=== PATIENT | female | born 1965 | race Caucasian/White ===

== ENCOUNTER 2020-11-30 01:15 | Emergency (ER) | payer OTHER, SELFPAY ==
[2020-11-30 01:39] VITALS: BP 109/90; PULSE 110; RESP 22; TEMP 36.6; O2SAT 95
[2020-11-30 01:54] LABS: Basophils Percent Auto 0.4 % (0.2-1.2); Eosinophils Absolute Auto 0.1 K/mm3 (0-0.3); Eosinophils Percent Auto 1.3 % (0-4.4); Hematocrit 39.7 % (37.0-47.0); Hemoglobin 13.1 g/dL (12.0-15.0); Immature Granulocyte Absolute 0.04 K/mm3 (0.00-0.031); Immature Granulocyte Percent A 0.4 % (0-0.5); Lymphocytes Absolute Auto 1.51 K/mm3 (0.9-3.2); Lymphocytes Percent Auto 16.5 % (18.3-44.2); Mean Corpuscular Hemoglobin 29.6 pg (26-34); Mean Corpuscular Volume 89.6 fl (80-100); Mean Platelet Volume 9.2 fl (7.4-10.4); Monocytes Absolute Auto 0.5 K/mm3 (0.1-0.6); Monocytes Percent Auto 5.8 % (2.6-8.5); Neutrophils Absolute Auto 6.9 K/mm3 (1.3-6.7); Neutrophils Percent Auto 75.6 % (45.5-73.1); Platelet Count Result 593 k/mm3 (150-375); Red Blood Count 4.43 M/mm3 (4.2-5.4); Red Cell Distribution Width 13.2 % (11.5-14.5); White Blood Count 9.2 K/mm3 (4.5-10.0)
[2020-11-30 02:04] LABS: INR 1.1; Partial Thromboplastin Time 30.9 SECONDS (22.3-36.8); Prothrombin Time 14.6 Seconds (11.1-14.7)
[2020-11-30] MEDS: ONDANSETRON INJ 4 MG/2 ML VIAL IV PUSH (02:05)
[2020-11-30] MEDS: SODIUM CHLORIDE 0.9% IV 1,000 ML 999 ML IV CONT ×2 (02:05→03:14)
[2020-11-30 02:12] LABS: Albumin Level 3.6 g/dL (3.5-5.1); Alkaline Phosphatase 114 U/L (38-126); Anion Gap 16 mmol/L (8-16); Aspartate Amino Transferase 48 U/L (14-36); Bilirubin,Total 0.3 mg/dL (0.2-1.3); Blood Urea Nitrogen 16 mg/dL (7-17); Calcium 8.3 mg/dL (8.4-10.2); Carbon Dioxide 20 mmol/L (22-30); Chloride 100 mmol/L (98-107); Estimated CRCL calculation 94 ml/min; Estimated Glomerular Filt Rate 47; Glucose 235 mg/dL (65-105); Lactic Acid Reflex 7.5 mmol/L (0.7-2.1); Lipase 62 U/L (23-300); Potassium 3.7 mmol/L (3.4-5.0); Sodium 136 mmol/L (137-145)
[2020-11-30 02:17] LABS: Alanine Aminotransferase 30 U/L (4-35)
[2020-11-30 02:30] VITALS: BP 110/82
--- NOTE | 2020-11-30 02:32 | ED.GENADULT ---
HPI - General Adult General Chief complaint: Abdominal Pain Stated complaint: n/v Time Seen by Provider: 11/30/20 01:18 History of Present Illness HPI narrative: Patient is a 55-year-old female who presents the emergency department with chief complaint of abdominal pain. The patient states that recently she has had problems with reflux and then aspirated and has had some coughing. She had a coughing fit and then had severe pain in her left lower quadrant. The patient states that the pain is sharp in her abdomen states that it is worse with movement and states that it is not improved by anything. Related Data Allergies Allergy/AdvReac Type Severity Reaction Status Date / Time No Known Allergies Allergy Verified 11/30/20 03:16 Review of Systems Review of Systems: Narrative: A 10 system review of systems was completed on the patient and is negative except for what is stated in the HPI. Nursing and ancillary documentation was reviewed. PMFSH Comments Patient has past medical history significant for gastroesophageal reflux disease Social history the patient lives with her Exam Narrative: Exam Narrative: GENERAL: Well-appearing, morbidly obese, and in no acute distress. HEAD: Normocephalic, atraumatic. EYES: PERRLA and EOMI. ENT: Nares clear, no rhinorrhea or epistaxis. Mucous membranes moist. NECK: Supple. CHEST: Clear to auscultation. No respiratory distress. HEART: Regular rate and rhythm. No murmur heard. Normal peripheral pulses. ABDOMEN: Abdominal wall is firm, there is diffuse tenderness to palpation, nondistended, normal active bowel sounds. EXTREMITIES: Normal range of motion. No edema. SKIN: Warm, dry, no rash. NEURO: No focal deficits. Alert and oriented x3. PSYCH: Normal mood and affect. Course Course Emergency Course: Patient was started with fluid resuscitation upon arrival to the emergency department laboratory studies were obtained which shows a lactate of 7.5. The patient exceeds the weight and with the capabilities of our CT scanner at our facility. Due to the lactate and abdominal pain and exam there is concern for intra-abdominal pathology. The case is discussed with the transfer center at [place] and the plan will be to transfer the patient to [place] for further evaluation including helical imaging patient was accepted by Dr Berry at [facility] Due to the elevated lactic with metabolic acidosis there is a concern for intra-abdominal emergent pathology that the patient will be transferred emergently to [place] due to the possibility of requiring emergency surgery after helical imaging Vital Signs Vital signs: Vital Signs Temperature 36.6 C 11/30/20 01:39 Pulse Rate 110 H 11/30/20 01:39 Respiratory Rate 22 H 11/30/20 01:39 Blood Pressure 109/90 11/30/20 01:39 Pulse Oximetry 95 11/30/20 01:39 Temperature 36.4 C L 11/30/20 03:11 Pulse Rate 116 H 11/30/20 03:11 Respiratory Rate 16 11/30/20 03:11 Blood Pressure 107/84 11/30/20 03:20 Pulse Oximetry 92 11/30/20 03:11 Medical Decision Making Vital Signs Vital Signs: Vital Signs Temperature 36.6 C 11/30/20 01:39 Pulse Rate 110 H 11/30/20 01:39 Respiratory Rate 22 H 11/30/20 01:39 Blood Pressure 109/90 11/30/20 01:39 Pulse Oximetry 95 11/30/20 01:39 Temperature 36.4 C L 11/30/20 03:11 Pulse Rate 116 H 11/30/20 03:11 Respiratory Rate 16 11/30/20 03:11 Blood Pressure 107/84 11/30/20 03:20 Pulse Oximetry 92 11/30/20 03:11 Lab Data Result diagrams: 11/30/20 01:46 11/30/20 01:46 Labs: Lab Results 11/30/20 11/30/20 11/30/20 Range/Units 01:46 01:46 01:46 WBC 9.2 (4.5-10.0) K/mm3 RBC 4.43 (4.2-5.4) M/mm3 Hgb 13.1 (12.0-15.0) g/dL Hct 39.7 (37.0-47.0) % MCV 89.6 (80-100) fl MCH 29.6 (26-34) pg MCHC 33.0 (32-36) g/dl RDW 13.2 (11.5-14.5) % Plt Count 593 H (150-375) k/mm3 MPV 9.2 (7.4-10.4) fl
[2020-11-30 03:11] VITALS: PULSE 116; RESP 16; TEMP 36.4; O2SAT 92
[2020-11-30 03:20] VITALS: BP 107/84
[2020-11-30 03:37] VITALS: BP 107/82; PULSE 116; RESP 18; TEMP 36.4; O2SAT 95
[2020-11-30 04:52] LABS: Reflex Lactic Acid Yes or No Add Lactic
== END 2020-11-30 03:40 | disposition short-term general hospital (02) ==
PROVIDERS: Emergency Provider Emergency Medicine
DX: E87.2 Acidosis (principal); R10.84 Generalized abdominal pain; K21.9 Gastro-esophageal reflux disease without esophagitis
CPT/HCPCS: 36415; 80053; 83605; 83690; 85025; 85610; 85730; 96361; 96374; 99285; J2405; J7030

== ENCOUNTER 2020-12-12 14:09 | Emergency (ER) | payer OTHER, SELFPAY ==
[2020-12-12] VITALS (18 sets, daily range): BP systolic 118–145; BP diastolic 70–98; PULSE 96–112; RESP 13–29; TEMP 36.8; O2SAT 94–99
--- NOTE | ~2020-12-12 | XR_ITS ---
EXAMINATION: XR chest 1V portable DATE: 12/12/2020 14:58 INDICATION: Chest pain. Shortness of breath. TECHNIQUE: A single frontal view of the chest was obtained. COMPARISON: None. FINDINGS: The chest demonstrates clear lungs without pneumonia, pleural effusion, or pneumothorax. Th e heart size is normal. IMPRESSION: 1. No acute cardiopulmonary disease. Reviewed, dictated and finalized at location A. [employer] ANALYST
--- NOTE | 2020-12-12 14:42 | ECG_ITS ---
Measurements Intervals [place] Rate: 108 P: 39 W[place]: 112 QRS: 61 QRSD: 92 T: 76 QT: 315 QTc: 423 Interpretive Statements SINUS TACHYCARDIA WITH SHORT WY INTERVAL ABNORMAL ECG Electronically Signed On 12-12-2020 15:54:55 [employer] by Justin Bashir D.O.
[2020-12-12 15:09] LABS: Basophils Absolute Auto 0.1 K/mm3 (0.0-0.1); Basophils Percent Auto 0.7 % (0.2-1.2); Eosinophils Absolute Auto 0.4 K/mm3 (0-0.3); Eosinophils Percent Auto 3.1 % (0-4.4); Hematocrit 35.1 % (37.0-47.0); Hemoglobin 11.2 g/dL (12.0-15.0); Immature Granulocyte Absolute 0.09 K/mm3 (0.00-0.031); Immature Granulocyte Percent A 0.7 % (0-0.5); Lymphocytes Absolute Auto 1.49 K/mm3 (0.9-3.2); Lymphocytes Percent Auto 11.7 % (18.3-44.2); Mean Corpuscular HGB Conc 31.9 g/dl (32-36); Mean Corpuscular Hemoglobin 28.4 pg (26-34); Mean Corpuscular Volume 89.1 fl (80-100); Mean Platelet Volume 9.2 fl (7.4-10.4); Monocytes Absolute Auto 0.9 K/mm3 (0.1-0.6); Monocytes Percent Auto 7.3 % (2.6-8.5); Neutrophils Absolute Auto 9.8 K/mm3 (1.3-6.7); Neutrophils Percent Auto 76.5 % (45.5-73.1); Nucleated Red Blood Cells Perc 0.2 % (0.0-0.2); Platelet Count Result 480 k/mm3 (150-375); Red Blood Count 3.94 M/mm3 (4.2-5.4); Red Cell Distribution Width 14.2 % (11.5-14.5); White Blood Count 12.8 K/mm3 (4.5-10.0)
[2020-12-12 15:20] LABS: Alanine Aminotransferase 24 U/L (4-35); Albumin Level 3.4 g/dL (3.5-5.1); Alkaline Phosphatase 75 U/L (38-126); Anion Gap 3 mmol/L (8-16); Aspartate Amino Transferase 34 U/L (14-36); Bilirubin,Total 0.9 mg/dL (0.2-1.3); Blood Urea Nitrogen 19 mg/dL (7-17); Calcium 8.8 mg/dL (8.4-10.2); Carbon Dioxide 31 mmol/L (22-30); Chloride 101 mmol/L (98-107); Estimated Glomerular Filt Rate > 60; Glucose 103 mg/dL (65-105); Potassium 3.7 mmol/L (3.4-5.0); Prothrombin Time 13.4 Seconds (11.1-14.7); Sodium 135 mmol/L (137-145)
[2020-12-12 15:21] LABS: Partial Thromboplastin Time 21.9 SECONDS (22.3-36.8)
[2020-12-12 15:35] LABS: Troponin I 0.044 ng/mL (0.000-0.034)
[2020-12-12 15:37] LABS: D Dimer 4.91 ug/mL (<0.48)
--- NOTE | 2020-12-12 15:44 | ED.GENADULT ---
HPI - General Adult General Chief complaint: Chest Pain Stated complaint: CP Time Seen by Provider: 12/12/20 14:15 Source: patient Mode of arrival: EMS Limitations: physical limitation History of Present Illness HPI narrative: Patient presents with chief complaint of having an episode of chest pressure and shortness of breath when she was rolled on her left side while at the rehab facility. Patient states that she is residing at the rehab facility so that she can regain her ability to walk. Patient states that she was seen here on 11-30-2020 and transferred to [place] for imaging and further care after having complications from aspiration and not being able to fit into our imaging machines. Patient states that she was discharged to the rehab facility so that she can began ambulating and other aids to daily living. Patient states that she does not have any chest pain or shortness of breath at this time. Patient has a history of IA or stroke. Patient and her state that when she was at [place] a hematoma in her back was found as a cause for her back pain. She denies any other symptoms or concerns. Related Data Home Medications Medication Instructions Recorded Confirmed Antacid (calcium carbonate) 12/12/20 pantoprazole 40 mg PO BID 12/12/20 12/12/20 sucralfate 12/12/20 Allergies Allergy/AdvReac Type Severity Reaction Status Date / Time No Known Allergies Allergy Verified 12/12/20 14:23 Review of Systems Review of Systems: Narrative: CONSTITUTIONAL: Denies fever, chills, or sweats. EYES: Denies visual changes, redness, or discharge. ENT: Denies rhinorrhea, congestion, sore throat, or otalgia. CARDIOVASCULAR: Reports chest pressure that has resolved denies palpitations, or edema. RESPIRATORY: Reports resolved dyspnea denies cough GASTROINTESTINAL: Denies abdominal pain, nausea, vomiting, or diarrhea. GENITOURINARY: Denies dysuria or hematuria. SKIN: Denies rash or itching. MUSCULOSKELETAL: Reports chronic back pain denies joint pain, or myalgia. NEUROLOGIC: Denies headache, numbness, dizziness, or weakness. PSYCHIATRIC: Denies anxiety or depression. Exam Narrative: Exam Narrative: GENERAL: Patient is morbidly obese and can not reposition or ambulate. Patient weighs approx 450lbs. HEAD: Normocephalic, atraumatic. EYES: PERRLA and EOMI. NECK: Supple. No adenopathy or masses. CHEST: Clear to auscultation. No respiratory distress. No wheezes rales or rhonchi. No tachypnea or gasping for breath. Patient 96% on room air. Patient is not hypoxic. HEART: No chest wall tenderness with palpation. Regular rate and rhythm. No murmur heard. Normal peripheral pulses. ABDOMEN: Soft, nontender, nondistended, normal active bowel sounds. EXTREMITIES: Normal range of motion. No edema. SKIN: Warm, dry, no rash. NEURO: No focal deficits. Alert and oriented x3. PSYCH: Normal mood and affect. Course Vital Signs Vital signs: Vital Signs Temperature 98.2 F 12/12/20 14:18 Pulse Rate 109 H 12/12/20 14:18 Respiratory Rate 15 12/12/20 14:18 Blood Pressure 144/98 H 12/12/20 14:18 Pulse Oximetry 95 12/12/20 14:18 Temperature 98.2 F 12/12/20 14:18 Pulse Rate 96 12/12/20 20:20 Respiratory Rate 17 12/12/20 20:20 Blood Pressure 125/71 12/12/20 20:20 Pulse Oximetry 96 12/12/20 20:20 Transfer Transfered to: [facility] Transfer rationale: patient requires imaging for further evaluation and is too large for [facility] machines Accepting physician: Dr Miles Tobias Transfer comments: r/o PE or other etiology for elevated dimer and back pain Medical Decision Making MDM Narrative Medical decision making narrative: Consult with Dr. Sellers, Cardiology who states that patient should just be admitted for serial troponins as with the now elevation he does not feel the needs to initiate other interventions at this time. Admit to hospitalist and he will consult. Consult Kelly Gao, THEE who
[2020-12-12 18:33] LABS: Troponin I 0.132 ng/mL (0.000-0.034)
[2020-12-12] MEDS: CALCIUM CARBONATE (TUMS) 500 MG (200 MG ELEMENTAL) PO (18:53)
--- NOTE | 2020-12-12 19:19 | PC.NURSE ---
Assumed care of pt, pt is alert and upright on stretcher. Pt on tele monitor, VSS. Discussing POC at this time. Pt requesting pain medication for her chronic back pain, rates an 8/10. EDP aware of request.
[2020-12-12] MEDS: MORPHINE SULFATE (*CRX) 4 MG/ML INJ IV PUSH (19:42)
[2020-12-12] MEDS: ENOXAPARIN 120 MG/0.8 ML SYRINGE SUB-Q (19:44)
[2020-12-12] MEDS: ENOXAPARIN 30 MG/0.3 ML SYRINGE SUB-Q (19:44)
--- NOTE | 2020-12-12 21:36 | PC.NURSE ---
called [employer] and [facility] to transport patient to [place]. both companies declined. [facility] accepted eta [id number]
--- NOTE | 2020-12-12 21:43 | PM.CNCAR ---
Assessment and Plan Assessment and plan (1) D-dimer, elevated: Code(s): R79.89 - Other specified abnormal findings of blood chemistry Status: Acute Assessment and Plan: D-dimer elevated Plans for V/Q scan pt was started on LMWH (2) Atypical chest pain: Code(s): R07.89 - Other chest pain Status: Acute Assessment and Plan: No acute EKG changes Troponin mildly elevated ECHO to evaluate LV function and r/o structural abnormalities Pt is started on LMWH ASA recommended as well Thank you for consult. Christian staton. History of Present Illness History of Present Illness Consult date/time: 12/12/20 Pt is a pleasant 55 y/o WF with PMH of GERD and morbid obesity who presented from rehab facility due to chest discomfort. Pt states that she had epigastric discomfort which was dull/pressure associated with SOB. She was not very concerned since it was similar to her GERD symptoms however facility recommended that she presents to ER for further evaluation. Recently pt presented to [facility] with some abdominal discomfort and since she was not fitting to imaging equipment due to her body habitus she was transferred to [facility]. Pt states that she was told to have clot in her groin and it was probably caused by her cough.. Pt was seen and examined while in ER, chart was reviewed, case was d/w pt's nurse. Reason For Visit: CP Review of Systems Review of Systems: All systems reviewed & are unremarkable except as noted in HPI and below Constitutional: Constitutional: Reports as per HPI Eyes: Eyes: Reports as per HPI ENT: Reports system reviewed and no additional complaints, except as documented and Reports as per HPI Cardiovascular: Cardiovascular: Reports as per HPI Respiratory: Respiratory: Reports as per HPI Gastrointestinal: Gastrointestinal: Reports as per HPI Genitourinary: Genitourinary: Reports as per HPI Musculoskeletal: Musculoskeletal: Reports as per HPI Meds Home Medications and Allergies Home Medications Medication Instructions Recorded Confirmed Type Antacid (calcium carbonate) 12/12/20 History pantoprazole 40 mg PO BID 12/12/20 12/12/20 History sucralfate 12/12/20 History Allergies Allergy/AdvReac Type Severity Reaction Status Date / Time No Known Allergies Allergy Verified 12/12/20 14:23 Vital Signs Vital Signs - 24 hr 12/12/20 14:18 12/12/20 15:13 12/12/20 15:15 Temperature 36.8 C Pulse Rate 109 H 110 H 111 H Respiratory Rate 15 26 H 28 H Blood Pressure 144/98 H Pulse Oximetry 95 12/12/20 15:30 12/12/20 15:45 12/12/20 16:00 Temperature Pulse Rate 112 H 110 H 109 H Respiratory Rate 25 H 23 H 18 Blood Pressure Pulse Oximetry 12/12/20 16:15 12/12/20 16:36 12/12/20 16:45 Temperature Pulse Rate 111 H 112 H 110 H Respiratory Rate 25 H 21 H 22 H Blood Pressure Pulse Oximetry 12/12/20 17:00 12/12/20 17:30 12/12/20 17:53 Temperature Pulse Rate 106 H 108 H 105 H Respiratory Rate 17 13 29 H Blood Pressure Pulse Oximetry 96 12/12/20 18:00 12/12/20 18:15 12/12/20 19:19 Temperature Pulse Rate 107 H 107 H 108 H Respiratory Rate 24 H 26 H 28 H Blood Pressure 145/72 H Pulse Oximetry 99 12/12/20 20:20 12/12/20 21:22 Temperature Pulse Rate 96 107 H Respiratory Rate 17 19 Blood Pressure 125/71 118/70 Pulse Oximetry 96 94 Exam Const: General: alert and awake; No acute distress HENMT: Head: normal to inspection and atraumatic Ears: hearing grossly normal bilaterally Face and sinus: normal facial exam Eyes: General: appearance normal, both eyes and all related structures Pupils: Equal, round and reactive pupils present EOM: EOMs intact bilaterally Neck: Neck: normal visual inspection and no JVD Chest: Chest palpation & inspection: normal inspection of the chest Resp: Effort & Inspection: normal respiratory effort and no respiratory distress Auscultation: clear to auscu
--- NOTE | 2020-12-12 21:59 | PC.NURSE ---
[facility] has arrived
== END 2020-12-12 22:15 | disposition short-term general hospital (02) ==
PROVIDERS: Physician Assistant; Emergency Provider Emergency Medicine
DX: R07.89 Other chest pain (principal); M54.5 Low back pain; R79.1 Abnormal coagulation profile; K21.9 Gastro-esophageal reflux disease without esophagitis; E66.01 Morbid (severe) obesity due to excess calories; R00.0 Tachycardia, unspecified
CPT/HCPCS: 36415; 71045; 80053; 84484; 85025; 85380; 85610; 85730; 93005; 96372; 96374; 99285; A9270; J1650; J2270

== ENCOUNTER 2021-03-23 08:00 | Inpatient (IN) | payer OTHER, SELFPAY ==
[2021-03-23] VITALS (21 sets, daily range): BP systolic 95–125; BP diastolic 51–72; PULSE 97–123; RESP 15–31; TEMP 35.9–36.8; O2SAT 89–99; BMI 51.2
--- NOTE | ~2021-03-23 | XR_ITS ---
EXAMINATION: XR chest 1V portable EXAM DATE: 03/26/2021 14:03 INDICATION: Pneumonia. Cough. Shortness of breath. TECHNIQUE: Portable AP frontal chest x-ray was obtained. Comparison is made to prior examination from 03/23/2021. FINDINGS: Small left pleural effusion. Small amount of bibasilar atelectasis or pneumonia. There are 2 contiguous left basilar subcentimeter nodular densities could also be infectious or postinfectious. These are not specifically seen on prior study. After acute episode resolves, a follow-up PA and lat eral chest x-ray is recommended to exclude underlying intraparenchymal nodules which would need furth er evaluation with CT. No pneumothorax. Cardiomediastinal silhouette is normal. There are mild bony d egenerative changes. IMPRESSION: 1. Mild progression of small amount of bibasilar atelectasis or pneumonia. 2. Couple of indeterminate nodular densities left lung base. Recommendation above. 3. Small left pleural effusion. Reviewed, dictated and finalized at location A. IMPRESSION: 1. Mild progression of small amount of bibasilar atelectasis or pneumonia. 2. Couple of indeterminate nodular densities left lung base. Recommendation ab ove. 3. Small left pleural effusion.
--- NOTE | ~2021-03-23 | XR_ITS ---
EXAMINATION: XR chest 1V portable DATE: 03/23/2021 08:48 INDICATION: Shortness of breath. TECHNIQUE: A single frontal view of the chest was obtained. COMPARISON: Chest single view 12/12/2020 FINDINGS: There are mild airspace opacities in right lower lung zone. No pleural effusion or pneumoth orax. The heart size is normal. IMPRESSION: 1. Mild airspace opacities in right lower lung zone, consistent with atelectasis versus pneumonia. Reviewed, dictated and finalized at location D. IMPRESSION: 1. Mild airspace opacities in right lower lung zone, consistent with atelectasi s versus pneumonia.
--- NOTE | 2021-03-23 08:06 | ECG_ITS ---
Measurements Intervals [place] Rate: 119 P: 74 SD: 144 QRS: -9 QRSD: 90 T: 78 QT: 318 QTc: 448 Interpretive Statements SINUS TACHYCARDIA POSSIBLE LEFT ATRIAL ENLARGEMENT LOW QRS VOLTAGE IN PRECORDIAL LEADS BORDERLINE ST-T WAVE ABNORMALITY- DIFFUSE LEADS BASELINE ARTIFACT- I, II, III, AVR, AVL, AVF, V1-V6 ABNORMAL ECG Electronically Signed On 03-23-2021 8:23:21 CDT by Justin Bashir D.O.
--- NOTE | 2021-03-23 08:07 | ED.SOB ---
HPI - SOB/Dyspnea General Chief Complaint: Shortness of Breath/Dyspnea Stated Complaint: vomited - possible aspiration Time Seen by Provider: 03/23/21 08:01 History of Present Illness HPI Narrative: 56 yo female w/ h/o PE, aspiration pneumonia, GERD, COVID-19 presents to the ED for suspected aspiration. She reports that she was vomiting in her sleep, which she says is not uncommon, and she is concerned that she may have aspirated. She awoke with a puddle of vomit in the bed beside her feeling very SOB. She tried an albuterol inhaler without improvement. Per EMS RA saturation was about 85%. She improved to the high 90s on 4 liters. The last time this happens She had aspiration pneumonia. While in the hospital for that she contracted COVID-19. She was just recently discharged home from rehab following that illness. Related Data Home Medications Medication Instructions Recorded Confirmed Antacid (calcium carbonate) 1 tab-cap PO TID 12/12/20 03/23/21 acetaminophen 650 mg 650 mg PO Q12H 03/09/21 03/23/21 tablet,extended release albuterol 90 mcg/actuation aerosol 180 mcg INHALATION DAILY PRN 03/09/21 03/23/21 inhaler gabapentin 300 mg capsule 300 mg PO TID 03/09/21 03/23/21 multivitamin 1 tablet PO DAILY 03/09/21 03/23/21 warfarin 5 mg tablet 5 mg PO DAILY 03/09/21 03/23/21 sucralfate 1 g PO BID PRN 03/23/21 03/23/21 Allergies Allergy/AdvReac Type Severity Reaction Status Date / Time No Known Allergies Allergy Verified 03/29/21 10:26 Review of Systems Review of Systems: All systems reviewed & are unremarkable except as noted in HPI and below Constitutional: Constitutional: Denies chills, Denies fever(s) and Denies weakness Eyes: Eyes: Reports no additional eye complaints ENT: Denies sore throat Cardiovascular: Cardiovascular: Denies chest pain Respiratory: Respiratory: Reports chest congestion, Reports cough, Reports dyspnea and Reports wheezing Gastrointestinal: Gastrointestinal: Denies abdominal pain, Denies diarrhea and Reports vomiting Genitourinary: Genitourinary: Denies hematuria and Denies dysuria Musculoskeletal: Musculoskeletal: Denies back pain Neurologic: Denies confusion, Denies dizziness and Denies weakness [facility] Past Medical History Medical History (Updated 03/29/21 @ 11:35 by Jagdish Piña MD) Allergies Anemia Anticoagulated on Coumadin Blood clot in vein Chronic GERD Encounter for screening colonoscopy Gallbladder & bile duct stone with obstruction Headaches, cluster History of pulmonary embolism On Coumadin IBS (irritable bowel syndrome) Morbid obesity Neuropathy Bilateral feet and toes Obesity Supratherapeutic INR Surgical History Surgical History (Updated 03/23/21 @ 16:58 by Kelley Blackwood NP) History of tonsillectomy and adenoidectomy Family History Family History (Updated 03/23/21 @ 16:59 by Kelley Blackwood NP) Mother Thyroid cancer Dementia Father Osteoarthritis Social History Social History (Updated 03/23/21 @ 17:00 by Kelley Blackwood NP) Social History: The patient lives with her . He is the power trust and estates attorney for healthcare. The patient desires to be a full code. The patient is a former smoker. She smoked for approximately 30 years. The patient tells me that she quit smoking about 9 years ago. She is the homemaker. She has 1 stepchild but no biological children. Smoking packs per day: 2 Smoking cigarettes per day: 40.0 Years smoked: 30 Smoking pack-years: 60.00 Smoking status: Former smoker Tobacco type: cigarettes Smoking end date: 03/30/21 Alcohol intake: never Substance use: never Gender identity (if verbalized by the patient): Female Spiritual care concerns: No Exam Const: General: no acute distress, alert and ill appearing Nutritional Appearance: obese morbidly obese Orientation/consciousness: patient oriented x3 HENMT: Head: normal to inspection Neck: Neck: normal visual inspection Johana
--- NOTE | 2021-03-23 08:25 | PC.NURSE ---
RT at bedside for ABG's and UDT. Labs collected as ordered.
[2021-03-23] MEDS: IPRATROPIUM BR 0.02% INH SOLN 0.5 MG/2.5 ML VIAL 1 MG INHALATION (08:36)
[2021-03-23] MEDS: ALBUTEROL SULFATE NEB 2.5 MG/0.5 ML INH 10 MG INHALATION (08:36)
[2021-03-23 08:38] LABS: Basophils Absolute Auto 0.1 K/mm3 (0.0-0.1); Basophils Percent Auto 0.7 % (0.2-1.2); Eosinophils Absolute Auto 0.3 K/mm3 (0-0.3); Eosinophils Percent Auto 3.6 % (0-4.4); Hematocrit 34.1 % (37.0-47.0); Immature Granulocyte Absolute 0.01 K/mm3 (0.00-0.031); Immature Granulocyte Percent A 0.1 % (0-0.5); Lymphocytes Absolute Auto 1.89 K/mm3 (0.9-3.2); Lymphocytes Percent Auto 22.7 % (18.3-44.2); Mean Corpuscular HGB Conc 29.3 g/dl (32-36); Mean Corpuscular Hemoglobin 21.8 pg (26-34); Mean Corpuscular Volume 74.5 fl (80-100); Mean Platelet Volume 9.6 fl (7.4-10.4); Monocytes Absolute Auto 0.6 K/mm3 (0.1-0.6); Monocytes Percent Auto 7.6 % (2.6-8.5); Neutrophils Absolute Auto 5.4 K/mm3 (1.3-6.7); Neutrophils Percent Auto 65.3 % (45.5-73.1); Platelet Count Result 572 k/mm3 (150-375); Red Blood Count 4.58 M/mm3 (4.2-5.4); Red Cell Distribution Width 16.7 % (11.5-14.5); White Blood Count 8.3 K/mm3 (4.5-10.0)
[2021-03-23 08:42] LABS: Alveolar/Arterial O2 Gradient 71.8 mmHg; Base Excess ABG -1.2 mEq/l (+/-2.0); Carboxyhemoglobin 0.6 % THb (0-2.0); Fractional Inspired Oxygen 24 %; HCO3 ABG 23.7 mEq/l (22.0-26.0); Methemoglobin ABG 0.3 %THb (0-1.5); Oxygen Content ABG 13.1 %vol (16.0-22.0); Oxyhemoglobin 83.2 % THb (90.0-100.0); PCO2 ABG 40.4 mmHg (35.0-45.0); PO2 ABG 51.2 mmHg (80.0-100.0); PO2 FiO2 Ratio Arterial Blood 2.13 %; Reduced Hemoglobin 15.9 %THb (0-5.0); Total Hemoglobin 11.2 g/dL (12.0-18.0); pH ABG 7.387 (7.350-7.450)
[2021-03-23 08:44] LABS: Device NASAL CANNULA; Modified Allen's Test Pass; Oxygen Saturation ABG 85.9 % (95.0-100.0); Site Drawn LEFT RADIAL
[2021-03-23 08:46] LABS: Lactic Acid Reflex 1.3 mmol/L (0.7-2.1); Prothrombin Time 39.1 Seconds (11.1-14.7)
[2021-03-23 08:47] LABS: Alanine Aminotransferase 31 U/L (4-35); Albumin Level 3.8 g/dL (3.5-5.1); Alkaline Phosphatase 62 U/L (38-126); Anion Gap 7 mmol/L (8-16); Aspartate Amino Transferase 35 U/L (14-36); Bilirubin,Total 0.2 mg/dL (0.2-1.3); Blood Urea Nitrogen 17 mg/dL (7-17); Calcium 9.3 mg/dL (8.4-10.2); Carbon Dioxide 25 mmol/L (22-30); Chloride 107 mmol/L (98-107); Estimated CRCL calculation 143 ml/min; Estimated Glomerular Filt Rate > 60; Glucose 121 mg/dL (65-105); Partial Thromboplastin Time 50.5 SECONDS (22.3-36.8); Potassium 3.7 mmol/L (3.4-5.0); Sodium 139 mmol/L (137-145)
[2021-03-23 08:53] LABS: Anisocytosis 1+ (NORMAL); Hypochromasia 2+ (NORMAL); Poikilocytosis 1+ (NORMAL)
[2021-03-23] MEDS: AMPICILLIN SULB 3 GM/NS 100 ML 3 GM/100 ML VIAL IVPB (08:54)
--- NOTE | 2021-03-23 09:06 | PC.NURSE ---
type and screen drawn and sent to lab. Pt's coughing has decreased at the present time.
--- NOTE | 2021-03-23 10:11 | PC.NURSE ---
Pt states is breathing easier at present. Note cough sounds productive. Remains on o2 at 2L/NC. Exp wheezes have decreased at present.
--- NOTE | 2021-03-23 11:02 | PC.NURSE ---
Pt not given the NS iv as awaiting blood products ordered previously. Blood product was cancelled per Dr. Piña but the NS was not.
[2021-03-23 13:14] LABS: INR 4.1; Prothrombin Time 40.3 Seconds (11.1-14.7)
[2021-03-23] MEDS: GABAPENTIN 300 MG CAPSULE PO ×2 (13:33→22:37)
[2021-03-23] MEDS: IPRATROPIUM BR 0.02% INH SOLN 0.5 MG/2.5 ML VIAL INHALATION ×2 (13:35→21:35)
[2021-03-23] MEDS: ALBUTEROL SULFATE NEB 2.5 MG/0.5 ML INH 5 MG INHALATION ×2 (13:35→21:35)
--- NOTE | 2021-03-23 15:02 | PCNSR ---
On 03/23/21, the student, Angela Joy, provided care and completed [facility] documentation on this patient. I have reviewed the student's documentation and agree with the findings.
--- NOTE | 2021-03-23 15:54 | PM.IMHP ---
H&P: HPI History of Present Illness Date/Time: 03/23/21 15:54 this is a 56-year-old female patient who has a history of GERD. The patient has a history of having a PE which occurred before her positive COVID-19. The patient stated was the end of December when she was diagnosed with a PE due to inactivity. The patient stated that she went to rehab and initially tested negative when she went into rehab but when she got into rehab she tested positive. The patient stated that she has been in rehab for 3 months and that she just recently got out of rehab 1 week before [facility]. She stated that she has not been home very long. The patient stated that she has not taken her Coumadin for 2 days because she was told that she has a elevated INR she was not given the exact number. She is not sure how long she will be on the Coumadin. The patient is currently not on any oxygen at home. The patient just recently started with physical therapy and occupational therapy in the home and also has home health nurse coming in her home as well. The patient stated that she still very weak and having difficulty walking. The patient is morbidly obese. The patient stated that she was told she needs to have a sleep study but still has not been able to have this performed. The patient has severe acid reflux and spoke with GI specialist she believes Dr. Morales who informed her that she would have to be off of her Coumadin for about 5 days before she could have a EGD and colonoscopy. The patient stated that she typically does not eat afternoon and sleeps with her head propped up. However she stated that she ate some scrambled eggs this morning was very sleepy and fell asleep shortly after eating. The patient stated she woke up suddenly with acid the back of her throat and she tried to spit it all out cough and all up but she stated she thinks that she aspirated the acid at that time. The EMS was activated and the patient was 85% saturation on room air. She was placed on 2 L per nasal cannula. She does have a history of anemia and her H&H is 10.0 in 34.1 today. Her INR is 4.0 today and her Coumadin is on hold. The patient was given Unasyn in the emergency room as well as nebulizer treatments. She was also given IV Protonix the patient is being admitted to inpatient services on the date of service of 03/23/2021.. Chief Complaint: asp pneumonia Review of Systems Review of Systems: All systems reviewed & are unremarkable except as noted in HPI and below Constitutional: Constitutional: Reports as per HPI and Reports no additional constitutional complaints Eyes: Eyes: Reports as per HPI and Reports no additional eye complaints ENT: Reports system reviewed and no additional complaints, except as documented and Reports Normal hearing present Cardiovascular: Cardiovascular: Reports no additional cardiovascular complaints Respiratory: Respiratory: Reports no additional respiratory complaints and Reports no additional respiratory complaints Gastrointestinal: Gastrointestinal: Reports as per HPI and Reports no additional gastrointestinal complaints Musculoskeletal: Musculoskeletal: Reports no additional musculoskeletal complaints Integumentary/Breasts: Skin/Breast: Reports system reviewed and no additional complaints, except as docu and Reports as per HPI Neurologic: Reports system reviewed and no additional complaints, except as documented, Reports as per HPI and Reports Normal hearing present Psychiatric: Psychiatric: Reports no additional psychiatric complaints and Reports as per HPI Endocrine: Endocrine: Reports no additional endocrine complaints Hematologic/Lymphatic: Hematologic/Lymphatic: Reports no additional hematologic/lymphatic complaints Allergic/Immunologic: Allergic/Immunologic: Reports no additional allergic/immunologic complaints [facility] Past Medical History Medical History (Updated 03/23/21 @ 16:58 by Kelley Blackwood NP) Allergies Anemia Blood
[2021-03-23] MEDS: LACTATED RINGERS 1,000 ML 125 ML IV CONT (17:24)
[2021-03-23] MEDS: ACETAMINOPHEN 325 MG TABLET 650 MG PO (18:48)
[2021-03-23] MEDS: METOCLOPRAMIDE HCL 2.5 MG TABLET PO (22:37)
[2021-03-23] MEDS: PANTOPRAZOLE 40 MG TABLET PO (22:37)
[2021-03-24] VITALS (20 sets, daily range): BP systolic 112–136; BP diastolic 55–64; PULSE 93–116; RESP 16–22; TEMP 36.1–36.4; O2SAT 93–100
[2021-03-24] MEDS: SUCRALFATE 1 GM TABLET PO (00:11)
[2021-03-24] MEDS: ALBUTEROL SULFATE NEB 2.5 MG/0.5 ML INH 5 MG INHALATION ×4 (03:26→19:50)
[2021-03-24] MEDS: IPRATROPIUM BR 0.02% INH SOLN 0.5 MG/2.5 ML VIAL INHALATION ×4 (03:26→19:50)
[2021-03-24] MEDS: ACETAMINOPHEN 325 MG TABLET 650 MG PO ×2 (04:35→11:36)
[2021-03-24] MEDS: LACTATED RINGERS 1,000 ML 125 ML IV CONT ×3 (04:35→23:37)
[2021-03-24 05:19] LABS: Basophils Absolute Auto 0.1 K/mm3 (0.0-0.1); Basophils Percent Auto 0.5 % (0.2-1.2); Eosinophils Absolute Auto 0.7 K/mm3 (0-0.3); Eosinophils Percent Auto 6.1 % (0-4.4); Hematocrit 29.3 % (37.0-47.0); Hemoglobin 8.5 g/dL (12.0-15.0); Immature Granulocyte Absolute 0.05 K/mm3 (0.00-0.031); Immature Granulocyte Percent A 0.5 % (0-0.5); Lymphocytes Absolute Auto 1.42 K/mm3 (0.9-3.2); Lymphocytes Percent Auto 13.3 % (18.3-44.2); Mean Corpuscular Hemoglobin 21.9 pg (26-34); Mean Corpuscular Volume 75.3 fl (80-100); Mean Platelet Volume 9.4 fl (7.4-10.4); Monocytes Absolute Auto 0.8 K/mm3 (0.1-0.6); Monocytes Percent Auto 7.7 % (2.6-8.5); Neutrophils Absolute Auto 7.7 K/mm3 (1.3-6.7); Neutrophils Percent Auto 71.9 % (45.5-73.1); Platelet Count Result 431 k/mm3 (150-375); Red Blood Count 3.89 M/mm3 (4.2-5.4); Red Cell Distribution Width 16.8 % (11.5-14.5); White Blood Count 10.6 K/mm3 (4.5-10.0)
[2021-03-24 05:36] LABS: Alanine Aminotransferase 24 U/L (4-35); Albumin Level 3.4 g/dL (3.5-5.1); Alkaline Phosphatase 53 U/L (38-126); Anion Gap 7 mmol/L (8-16); Aspartate Amino Transferase 27 U/L (14-36); Bilirubin,Total 0.2 mg/dL (0.2-1.3); Blood Urea Nitrogen 15 mg/dL (7-17); Calcium 8.6 mg/dL (8.4-10.2); Carbon Dioxide 28 mmol/L (22-30); Chloride 104 mmol/L (98-107); Estimated CRCL calculation 126 ml/min; Estimated Glomerular Filt Rate > 60; Glucose 111 mg/dL (65-105); Magnesium 1.9 mg/dL (1.6-2.3); Potassium 3.6 mmol/L (3.4-5.0); Sodium 139 mmol/L (137-145)
[2021-03-24] MEDS: METOCLOPRAMIDE HCL 2.5 MG TABLET PO ×4 (05:39→20:08)
[2021-03-24] MEDS: GABAPENTIN 300 MG CAPSULE PO ×3 (05:39→21:19)
[2021-03-24 06:42] LABS: Anisocytosis 1+ (NORMAL); Hypochromasia 1+ (NORMAL); Platelet Estimate Adequate (Adequate)
[2021-03-24] MEDS: PANTOPRAZOLE 40 MG TABLET PO (09:01)
--- NOTE | 2021-03-24 09:09 | PM.IMPN ---
Progress Note: A&P Assessment and Plan (1) Aspiration pneumonia: Code(s): J69.0 - Pneumonitis due to inhalation of food and vomit Status: Acute Assessment and Plan: WBC elevated, follow trend Continue with Zosyn, renal dose Followed by GI, endoscopy planned Continue with IVF bed elevated at least 60? (2) Anemia: Code(s): D64.9 - Anemia, unspecified Status: Chronic Assessment and Plan: Transfuse if <7 Continue to monitor Check iron studies (3) Obesity: Code(s): E66.9 - Obesity, unspecified Status: Chronic Assessment and Plan: Lifestyle modifications encourged PT/OT evaluate and treat PT and OT coming to her home (4) Neuropathy: Code(s): G62.9 - Polyneuropathy, unspecified Status: Chronic Assessment and Plan: Continue with gabapentin (5) Chronic GERD: Code(s): K21.9 - Gastro-esophageal reflux disease without esophagitis Status: Chronic Assessment and Plan: Pantoprazole and Carafate by GI Will continue with home omeprazole and famotidine Subjective Date/time seen: 03/24/21 09:09P Pt is feeling about the same; continues with SOB; denies any CP; some nausea Review of Systems Review of Systems: All systems reviewed & are unremarkable except as noted in HPI and below Constitutional: Constitutional: Reports as per HPI and Reports no additional constitutional complaints Eyes: Eyes: Reports as per HPI and Reports no additional eye complaints ENT: Reports system reviewed and no additional complaints, except as documented and Reports Normal hearing present Cardiovascular: Cardiovascular: Reports no additional cardiovascular complaints Respiratory: Respiratory: Reports no additional respiratory complaints and Reports no additional respiratory complaints Gastrointestinal: Gastrointestinal: Reports as per HPI and Reports no additional gastrointestinal complaints Musculoskeletal: Musculoskeletal: Reports no additional musculoskeletal complaints Integumentary/Breasts: Skin/Breast: Reports system reviewed and no additional complaints, except as docu and Reports as per HPI Neurologic: Reports system reviewed and no additional complaints, except as documented, Reports as per HPI and Reports Normal hearing present Psychiatric: Psychiatric: Reports no additional psychiatric complaints and Reports as per HPI Endocrine: Endocrine: Reports no additional endocrine complaints Hematologic/Lymphatic: Hematologic/Lymphatic: Reports no additional hematologic/lymphatic complaints Allergic/Immunologic: Allergic/Immunologic: Reports no additional allergic/immunologic complaints Exam Const: General: cooperative, healthy appearing, comfortable, no acute distress, well developed, alert, awake and Physically active Nutritional Appearance: obese and overweight Orientation/consciousness: oriented to person, oriented to place, oriented to time and patient oriented x3 Limitations: no limitations HENMT: Head: normal to inspection, No palpable skull fracture present, normocephalic and atraumatic Ears: hearing grossly normal bilaterally and external ears normal General nose exam: Normal external nose present, Normal nares present and No nasal polyps present Eyes: General: appearance normal, both eyes and all related structures Alignment and Position: alignment normal Periorbital: periorbital findings normal Eyelids: eyelids normal Conjunctivae: conjunctivae normal Sclera: sclerae normal Cornea: corneas normal Pupils: Equal, round and reactive pupils present EOM: EOMs intact bilaterally Neck: Neck: normal visual inspection, full ROM, no lymphadenopathy, trachea midline and supple Thyroid: thyroid normal Carotids: normal carotid upstroke Lymphatic: no lymphadenopathy noted Chest: Chest palpation & inspection: normal inspection of the chest Resp: Effort & Inspection: normal respiratory effort Auscultation: diminished lung sounds Cardio:
--- NOTE | 2021-03-24 11:27 | PHAR ---
HOME MED VERIFIED [facility] [id number] OMEPRAZOLE 40 MG 1 CAP BID
[2021-03-24] MEDS: PHARMACIST COMMUNICATION ORDER 1 EACH XX (11:40)
[2021-03-24 12:11] LABS: Basophils Percent Auto 0.4 % (0.2-1.2); Eosinophils Absolute Auto 0.6 K/mm3 (0-0.3); Eosinophils Percent Auto 6.6 % (0-4.4); Hematocrit 27.1 % (37.0-47.0); Hemoglobin 7.9 g/dL (12.0-15.0); Immature Granulocyte Absolute 0.02 K/mm3 (0.00-0.031); Immature Granulocyte Percent A 0.2 % (0-0.5); Lymphocytes Absolute Auto 1.07 K/mm3 (0.9-3.2); Lymphocytes Percent Auto 11.4 % (18.3-44.2); Mean Corpuscular HGB Conc 29.2 g/dl (32-36); Mean Corpuscular Hemoglobin 21.8 pg (26-34); Mean Corpuscular Volume 74.7 fl (80-100); Mean Platelet Volume 9.3 fl (7.4-10.4); Monocytes Absolute Auto 0.7 K/mm3 (0.1-0.6); Monocytes Percent Auto 7.4 % (2.6-8.5); Platelet Count Result 384 k/mm3 (150-375); Red Blood Count 3.63 M/mm3 (4.2-5.4); Red Cell Distribution Width 16.5 % (11.5-14.5); White Blood Count 9.4 K/mm3 (4.5-10.0)
[2021-03-24 12:22] LABS: Anion Gap 2 mmol/L (8-16); Blood Urea Nitrogen 12 mg/dL (7-17); Calcium 8.3 mg/dL (8.4-10.2); Carbon Dioxide 30 mmol/L (22-30); Chloride 105 mmol/L (98-107); Estimated CRCL calculation 143 ml/min; Estimated Glomerular Filt Rate > 60; Glucose 116 mg/dL (65-105); Potassium 3.8 mmol/L (3.4-5.0); Sodium 137 mmol/L (137-145)
[2021-03-24 12:40] LABS: Prothrombin Time 39.7 Seconds (11.1-14.7)
[2021-03-24 12:42] LABS: Hypochromasia 2+ (NORMAL); Ovalocytes 1+ (NORMAL); Platelet Estimate Adequate (Adequate)
[2021-03-24 13:36] LABS: Iron 15 ug/dL (37-170)
[2021-03-24 13:45] LABS: Percent Iron Saturation 5 % (20-50)
[2021-03-24] MEDS: CALCIUM CARBONATE (TUMS) 500 MG (200 MG ELEMENTAL) PO ×2 (16:49→23:38)
[2021-03-24] MEDS: FAMOTIDINE 20 MG/2 ML VIAL IV PUSH (20:08)
[2021-03-25] VITALS (15 sets, daily range): BP systolic 112–141; BP diastolic 49–122; PULSE 91–104; RESP 18–20; TEMP 35.7–37.2; O2SAT 92–98
[2021-03-25] MEDS: IPRATROPIUM BR 0.02% INH SOLN 0.5 MG/2.5 ML VIAL INHALATION ×4 (01:40→21:34)
[2021-03-25] MEDS: ALBUTEROL SULFATE NEB 2.5 MG/0.5 ML INH 5 MG INHALATION ×4 (01:40→21:34)
[2021-03-25] MEDS: CALCIUM CARBONATE (TUMS) 500 MG (200 MG ELEMENTAL) PO ×3 (04:08→17:37)
[2021-03-25] MEDS: GABAPENTIN 300 MG CAPSULE PO ×3 (05:48→22:36)
[2021-03-25] MEDS: METOCLOPRAMIDE HCL 2.5 MG TABLET PO ×4 (05:48→20:23)
[2021-03-25] MEDS: FAMOTIDINE 20 MG/2 ML VIAL IV PUSH ×2 (09:04→20:23)
[2021-03-25] MEDS: ACETAMINOPHEN 325 MG TABLET 650 MG PO (11:54)
[2021-03-25 12:14] LABS: INR 3.3; Prothrombin Time 34.1 Seconds (11.1-14.7)
--- NOTE | 2021-03-25 15:37 | PM.IMPN ---
Progress Note: A&P Assessment and Plan (1) Aspiration pneumonia: Code(s): J69.0 - Pneumonitis due to inhalation of food and vomit Status: Acute Assessment and Plan: WBC improved, now wnl Continue with Zosyn, renal dose Followed by GI, endoscopy planned GI consulted S/p IVF bed elevated at least 60? (2) Anemia: Code(s): D64.9 - Anemia, unspecified Status: Chronic Assessment and Plan: Hgb 7.9 today Transfuse if <7 Continue to monitor Iron low Will start supplement (3) Obesity: Code(s): E66.9 - Obesity, unspecified Status: Chronic Assessment and Plan: Lifestyle modifications encourged PT/OT evaluate and treat PT and OT coming to her home (4) Neuropathy: Code(s): G62.9 - Polyneuropathy, unspecified Status: Chronic Assessment and Plan: Continue with gabapentin (5) Chronic GERD: Code(s): K21.9 - Gastro-esophageal reflux disease without esophagitis Status: Chronic Assessment and Plan: Pantoprazole and Carafate by GI Will continue with home omeprazole and famotidine Subjective Date/time seen: 03/25/21 15:37 Pt continues with coughing, SOB, reflux, N/V; denies any CP or abdominal pain Review of Systems Review of Systems: All systems reviewed & are unremarkable except as noted in HPI and below Exam Const: General: cooperative, healthy appearing, comfortable, no acute distress, well developed, alert, awake and Physically active Nutritional Appearance: obese and overweight Orientation/consciousness: oriented to person, oriented to place, oriented to time and patient oriented x3 Limitations: no limitations HENMT: Head: normal to inspection, No palpable skull fracture present, normocephalic and atraumatic Ears: hearing grossly normal bilaterally and external ears normal General nose exam: Normal external nose present, Normal nares present and No nasal polyps present Eyes: General: appearance normal, both eyes and all related structures Alignment and Position: alignment normal Periorbital: periorbital findings normal Eyelids: eyelids normal Conjunctivae: conjunctivae normal Sclera: sclerae normal Cornea: corneas normal Pupils: Equal, round and reactive pupils present EOM: EOMs intact bilaterally Neck: Neck: normal visual inspection, full ROM, no lymphadenopathy, trachea midline and supple Thyroid: thyroid normal Carotids: normal carotid upstroke Lymphatic: no lymphadenopathy noted Chest: Chest palpation & inspection: normal inspection of the chest Resp: Effort & Inspection: normal respiratory effort Auscultation: diminished lung sounds Cardio: Palpation: normal PMI Rate: regular rate Rhythm: regular rhythm Heart sounds: S1 normal heart sound present and S2 normal heart sound present Peripheral pulses: Peripheral pulses 2+ throughout GI: Inspection: normal to inspection Auscultation: normal bowel sounds Rectal Exam: deferred Skin: General skin exam: normal color Lesions: no lesions Rashes: no rashes Trauma: no lacerations or abrasions Wounds: no wounds Hair: normal Nails: normal Neuro: General: oriented to person, oriented to place, oriented to time and patient oriented x3 Cranial nerves: Yes Equal, round and reactive pupils present and Yes Normal hearing present Cognition (Neuro): normal cognition Speech: normal speech Extrem: General: normal to inspection Right upper extremity: normal to inspection Left upper extremity: normal to inspection Right lower extremity: normal to inspection Left lower extremity: normal to inspection Psych: Appearance: grossly normal Mental Status: mental status grossly normal Speech and movement: Normal speech and movement present Affect: normal affect Attitude: cooperative Thought process: Normal thought process present Insight: Good insight present (Psych) Judgement: Good judgement present (Psych) Objective Data Vital Signs Vital Signs: Vital Signs - 24 hr 0
[2021-03-26] VITALS (12 sets, daily range): BP systolic 111–122; BP diastolic 55–61; PULSE 87–94; RESP 16–20; TEMP 36.8–37.1; O2SAT 95–97
[2021-03-26] MEDS: IPRATROPIUM BR 0.02% INH SOLN 0.5 MG/2.5 ML VIAL INHALATION ×4 (03:05→19:39)
[2021-03-26] MEDS: ALBUTEROL SULFATE NEB 2.5 MG/0.5 ML INH 5 MG INHALATION ×4 (03:05→19:39)
[2021-03-26] MEDS: MULTIVITAMINS THERAPEUTIC TAB (*BKC) 1 TABLET PO (08:59)
[2021-03-26] MEDS: FAMOTIDINE 20 MG/2 ML VIAL IV PUSH ×2 (08:59→21:07)
[2021-03-26] MEDS: MUPIROCIN 2% OINT 22 GM TUBE 1 APPLIC TOPICAL (12:04)
[2021-03-26] MEDS: METOCLOPRAMIDE HCL 2.5 MG TABLET PO ×3 (12:05→21:08)
[2021-03-26 12:14] LABS: INR 2.5; Prothrombin Time 27.2 Seconds (11.1-14.7)
--- NOTE | 2021-03-26 12:27 | PM.IMPN ---
Progress Note: A&P Assessment and Plan (1) Aspiration pneumonia: Code(s): J69.0 - Pneumonitis due to inhalation of food and vomit Status: Acute Assessment and Plan: WBC improved, now wnl Continue with Zosyn, renal dose Followed by GI, endoscopy planned GI consulted S/p IVF bed elevated at least 60? Repeat CXR (2) Anemia: Code(s): D64.9 - Anemia, unspecified Status: Chronic Assessment and Plan: Hgb 7.9 03/25 Transfuse if <7 Continue to monitor Iron low Will start supplement (3) Obesity: Code(s): E66.9 - Obesity, unspecified Status: Chronic Assessment and Plan: Lifestyle modifications encourged PT/OT evaluate and treat PT and OT coming to her home (4) Neuropathy: Code(s): G62.9 - Polyneuropathy, unspecified Status: Chronic Assessment and Plan: Continue with gabapentin (5) Chronic GERD: Code(s): K21.9 - Gastro-esophageal reflux disease without esophagitis Status: Chronic Assessment and Plan: Pantoprazole and Carafate by GI Will continue with home omeprazole and famotidine Subjective Date/time seen: 03/26/21 12:27 Pt continues with nausea; no vomiting today; GI consult pending Review of Systems Review of Systems: All systems reviewed & are unremarkable except as noted in HPI and below Exam Const: General: cooperative, healthy appearing, comfortable, no acute distress, well developed, alert, awake and Physically active Nutritional Appearance: obese and overweight Orientation/consciousness: oriented to person, oriented to place, oriented to time and patient oriented x3 Limitations: no limitations HENMT: Head: normal to inspection, No palpable skull fracture present, normocephalic and atraumatic Ears: hearing grossly normal bilaterally and external ears normal General nose exam: Normal external nose present, Normal nares present and No nasal polyps present Eyes: General: appearance normal, both eyes and all related structures Alignment and Position: alignment normal Periorbital: periorbital findings normal Eyelids: eyelids normal Conjunctivae: conjunctivae normal Sclera: sclerae normal Cornea: corneas normal Pupils: Equal, round and reactive pupils present EOM: EOMs intact bilaterally Neck: Neck: normal visual inspection, full ROM, no lymphadenopathy, trachea midline and supple Thyroid: thyroid normal Carotids: normal carotid upstroke Lymphatic: no lymphadenopathy noted Chest: Chest palpation & inspection: normal inspection of the chest Resp: Effort & Inspection: normal respiratory effort Auscultation: diminished lung sounds Cardio: Palpation: normal PMI Rate: regular rate Rhythm: regular rhythm Heart sounds: S1 normal heart sound present and S2 normal heart sound present Peripheral pulses: Peripheral pulses 2+ throughout GI: Inspection: normal to inspection Auscultation: normal bowel sounds Rectal Exam: deferred Skin: General skin exam: normal color Lesions: no lesions Rashes: no rashes Trauma: no lacerations or abrasions Wounds: no wounds Hair: normal Nails: normal Neuro: General: oriented to person, oriented to place, oriented to time and patient oriented x3 Cranial nerves: Yes Equal, round and reactive pupils present and Yes Normal hearing present Cognition (Neuro): normal cognition Speech: normal speech Extrem: General: normal to inspection Right upper extremity: normal to inspection Left upper extremity: normal to inspection Right lower extremity: normal to inspection Left lower extremity: normal to inspection Psych: Appearance: grossly normal Mental Status: mental status grossly normal Speech and movement: Normal speech and movement present Affect: normal affect Attitude: cooperative Thought process: Normal thought process present Insight: Good insight present (Psych) Judgement: Good judgement present (Psych) Objective Data Vital Signs Vital Signs: Vital Signs - 24 hr
--- NOTE | 2021-03-26 14:37 | WPDGICN ---
Assessment and Plan Assessment and plan (1) Chronic GERD: Code(s): K21.9 - Gastro-esophageal reflux disease without esophagitis Status: Chronic Assessment and Plan: worsening gerd at bedtime and sometimes regurgitate on own saliva while sleeping she says that famotidine and omeprazole bid not helping anymore we will do EGD but need to await until INR<1.7 (still high today, repeat in the morning and if inr is acceptable then can proceed with egd) (2) Aspiration pneumonia: Code(s): J69.0 - Pneumonitis due to inhalation of food and vomit Status: Acute Assessment and Plan: from chronic gerd on iv zosyn I also wonder if may need later on sleep study (she says that at night regurgitation and episodes of reflux/waking up more often) (3) Anticoagulated on Coumadin: Code(s): Z79.01 - [facility] (current) use of anticoagulants Status: Acute Assessment and Plan: keep holding coumadin so we can do EGD (4) Supratherapeutic INR: Code(s): R79.1 - Abnormal coagulation profile Status: Acute (5) Anemia: Code(s): D64.9 - Anemia, unspecified Status: Chronic Assessment and Plan: continue to monitor, no obvious GIB (6) Morbid obesity: Code(s): E66.01 - Morbid (severe) obesity due to excess calories Status: Acute (7) Encounter for screening colonoscopy: Code(s): Z12.11 - Encounter for screening for malignant neoplasm of colon Status: Acute Assessment and Plan: never had colonoscopy, will need at some point (probably as outpatient after pneumonia is resolved) GI Consult Note Consult date/time: 03/26/21 14:37 Reason for consult: GERD HPI: Snehal Mayes is a 56 year old female who came to see my nurse practitioner in the office few weeks ago because worsening reflux and regurgitation. She is morbidly obese with longstanding GERD, she used to be on famotidine that was working however since October reports medicine just stopped working and she has been dealing with more burning sensation and reflux that is worse at night, has episodes of night awakenings with vomiting yellow acid and sour taste in mouth. Actually back on December had coughing episode that cause severe abdominal pain which was complicated by large hematoma in lower abdomen, then she was transferred to rehab and eventually diagnosed with PE, she has been on coumadin, she also just recovered from COVID. She says that is afraid to go to sleep because worsening regurgitation, also she has burping sensation and bloating, she is not eating as much and says that lost several pounds. This time she was admitted after she woke up suddenly with acid the back of her throat and she tried to spit it all out cough and all up but she stated she thinks that she aspirated the acid at that time. EMS checked her pulse sat ~ 85% on room air. She was placed on 2 L per nasal cannula. Her hb was 10 and INR on admission 4.0. Given iv antibiotics for possible aspiration pneumonitis and also iv protonix. Never had scopes. CXR reviewed, mild progression of small amount of bibasilar atelectasis or pneumonia. Review of Systems Constitutional: Constitutional: Denies chills Eyes: Eyes: Reports no additional eye complaints ENT: Reports Normal hearing present Cardiovascular: Cardiovascular: Reports no additional cardiovascular complaints Respiratory: Respiratory: Reports cough Gastrointestinal: Gastrointestinal: Reports heartburn Genitourinary: Genitourinary: Denies hematuria Musculoskeletal: Musculoskeletal: Denies neck pain Integumentary/Breasts: Skin/Breast: Denies dry skin Neurologic: Reports system reviewed and no additional complaints, except as documented Psychiatric: Psychiatric: Reports no additional psychiatric complaints [facility] Past Medical History Medical History (Updated 03/26/21 @ 14:48 by German Goins MD) Allergies Anemia Anticoagulated on Coumadin Bloo
[2021-03-26] MEDS: GABAPENTIN 300 MG CAPSULE PO ×2 (17:02→21:09)
[2021-03-26] MEDS: CALCIUM CARBONATE (TUMS) 500 MG (200 MG ELEMENTAL) PO (21:07)
[2021-03-27] VITALS (16 sets, daily range): BP systolic 106–134; BP diastolic 55–66; PULSE 80–94; RESP 16–20; TEMP 36.1–36.4; O2SAT 91–98
[2021-03-27] MEDS: ALBUTEROL SULFATE NEB 2.5 MG/0.5 ML INH 5 MG INHALATION ×4 (01:48→20:55)
[2021-03-27] MEDS: IPRATROPIUM BR 0.02% INH SOLN 0.5 MG/2.5 ML VIAL INHALATION ×4 (01:48→20:55)
[2021-03-27] MEDS: GABAPENTIN 300 MG CAPSULE PO ×3 (05:23→21:07)
[2021-03-27] MEDS: METOCLOPRAMIDE HCL 2.5 MG TABLET PO ×4 (05:31→21:07)
[2021-03-27 05:32] LABS: Basophils Absolute Auto 0.1 K/mm3 (0.0-0.1); Basophils Percent Auto 0.9 % (0.2-1.2); Eosinophils Absolute Auto 0.6 K/mm3 (0-0.3); Eosinophils Percent Auto 10.1 % (0-4.4); Hematocrit 28.2 % (37.0-47.0); Hemoglobin 8.1 g/dL (12.0-15.0); Immature Granulocyte Absolute 0.02 K/mm3 (0.00-0.031); Immature Granulocyte Percent A 0.4 % (0-0.5); Lymphocytes Absolute Auto 1.65 K/mm3 (0.9-3.2); Lymphocytes Percent Auto 29.7 % (18.3-44.2); Mean Corpuscular HGB Conc 28.7 g/dl (32-36); Mean Corpuscular Hemoglobin 21.5 pg (26-34); Mean Corpuscular Volume 74.8 fl (80-100); Mean Platelet Volume 9.1 fl (7.4-10.4); Monocytes Absolute Auto 0.5 K/mm3 (0.1-0.6); Monocytes Percent Auto 8.1 % (2.6-8.5); Neutrophils Absolute Auto 2.8 K/mm3 (1.3-6.7); Neutrophils Percent Auto 50.8 % (45.5-73.1); Platelet Count Result 405 k/mm3 (150-375); Red Blood Count 3.77 M/mm3 (4.2-5.4); Red Cell Distribution Width 16.7 % (11.5-14.5); White Blood Count 5.6 K/mm3 (4.5-10.0)
[2021-03-27 05:44] LABS: Potassium 3.7 mmol/L (3.4-5.0)
[2021-03-27 05:48] LABS: Anion Gap 3 mmol/L (8-16); Blood Urea Nitrogen 6 mg/dL (7-17); Calcium 8.3 mg/dL (8.4-10.2); Carbon Dioxide 33 mmol/L (22-30); Chloride 103 mmol/L (98-107); Estimated CRCL calculation 143 ml/min; Estimated Glomerular Filt Rate > 60; Glucose 90 mg/dL (65-105); Sodium 139 mmol/L (137-145)
[2021-03-27 05:49] LABS: INR 2.1; Prothrombin Time 23.8 Seconds (11.1-14.7)
[2021-03-27] MEDS: FAMOTIDINE 20 MG/2 ML VIAL IV PUSH ×2 (08:33→21:07)
[2021-03-27] MEDS: MUPIROCIN 2% OINT 22 GM TUBE 1 APPLIC TOPICAL (08:35)
[2021-03-27 09:26] LABS: Hypochromasia 2+ (NORMAL); Platelet Estimate Increased (Adequate)
[2021-03-27 09:27] LABS: Ovalocytes 1+ (NORMAL)
[2021-03-27] MEDS: MULTIVITAMINS THERAPEUTIC TAB (*BKC) 1 TABLET PO (10:34)
--- NOTE | 2021-03-27 12:29 | PC.NURSE ---
On 03/27/21, the student, [USMAN SALGADO], provided care and completed [facility] documentation on this patient. I have reviewed the student's documentation and agree with the findings.
--- NOTE | 2021-03-27 12:50 | PM.IMPN ---
Progress Note: A&P Assessment and Plan (1) Acute respiratory failure with hypoxia: Code(s): J96.01 - Acute respiratory failure with hypoxia Status: Acute Assessment and Plan: Patient has been on 2 L of oxygen via nasal cannula since arrival. Could be due to underlying aspiration pneumonia versus obesity hypoventilation syndrome her versus sleep apnea versus other. Patient is 98% on 1 L via nasal cannula. Continue with IV antibiotics and duoneb treatments at this time Will continue wean oxygen as tolerated (2) Aspiration pneumonia: Code(s): J69.0 - Pneumonitis due to inhalation of food and vomit Status: Acute Assessment and Plan: Patient presented to the hospital due to possible aspiration pneumonia. She was at home and had eaten then woke coughing, felt like there was acid in the back of her throat that began having some trouble breathing. Mild airspace opacity in right lower lung zone, consistent with atelectasis versus pneumonia. The patient has been on 2 L of oxygen via nasal cannula due to acute respiratory failure with hypoxia from aspiration pneumonia IV antibiotics with Zosyn Day #5 White blood cell count has normalized, normal neutrophil count GI was consulted for further evaluation and possible EGD due to Followed by GI, endoscopy Aspiration precautions initiated Continue monitoring. (3) Iron deficiency anemia: Code(s): D50.9 - Iron deficiency anemia, unspecified Status: Acute Assessment and Plan: Acute iron deficiencyanemia. Patient had normal Hgb 11/30/20 and on arrival 03/23/21 Hgb was 10. Patients H&H has slowly decreased during admission. Could be secondary to acute gastritis vs duodenal ulcer vs supratherapeutic INR verses other. Will give 3 doses of IV Venofer due to iron deficiency, then start Ferrous Sulfate upon discharge Monitor H&H which seems to be stabilized at this time. Hgb 8.1/Hct 28%. GI is on board and appreciate his input due to aspiration pneumonia and GERD. Continue monitoring H&H. Transfuse if Hgb less than 7 (4) Obesity: Code(s): E66.9 - Obesity, unspecified Status: Chronic Assessment and Plan: Lifestyle modifications encouraged PT/OT to continue working with the patient (5) Neuropathy: Code(s): G62.9 - Polyneuropathy, unspecified Status: Chronic Assessment and Plan: Continue with gabapentin (6) Chronic GERD: Code(s): K21.9 - Gastro-esophageal reflux disease without esophagitis Status: Chronic Assessment and Plan: Patient is on Metoclopramide ACHS, Famotidine IV 20 mg Q12hrs and PRN Tums. Continue monitoring. (7) Supratherapeutic INR: Code(s): R79.1 - Abnormal coagulation profile Status: Acute Assessment and Plan: Patient is on warfarin due to history of pulmonary embolism back in December 2020. INR was 4.0 on arrival to the ER. We have held the patient's warfarin at this time. INR is 2.1. We are wanting to do an EGD on the patient but her INR has to be less than 1.7. Will recheck in the morning. Time Spent With Patient Time with patient: 25 - 35 minutes Subjective Date/time seen: 03/27/21 12:50 Interval history: Date of service 03/27/2021: Patient reports improvement of her breathing. She still has frequent belching after eating, she has had less GERD symptoms today. She reports a slight tickle in the back of her throat causing her to cough. Denies any deep coughing or productive sputum. Denies any chest pain, palpitations, fever, chills, nausea, vomiting, abdominal pain, leg swelling, calf pain, or any other symp
--- NOTE | 2021-03-27 14:12 | WPDGIPROGNO ---
Progress Note: A&P Assessment and Plan (1) Chronic GERD: Code(s): K21.9 - Gastro-esophageal reflux disease without esophagitis Status: Chronic Assessment and Plan: affecting QOL, will do EGD tomorrow (INR 2.1 today and coumadin has been on hold since admission- expect that tomorrow will be able to do scopes) (2) Iron deficiency anemia: Code(s): D50.9 - Iron deficiency anemia, unspecified Status: Acute Assessment and Plan: no signs of bleeding but also needs a colonoscopy since she will be back on coumadin (never had one), noted МАРИНА (3) Aspiration pneumonia: Code(s): J69.0 - Pneumonitis due to inhalation of food and vomit Status: Acute Assessment and Plan: treatment, better (4) Morbid obesity: Code(s): E66.01 - Morbid (severe) obesity due to excess calories Status: Acute (5) Anticoagulated on Coumadin: Code(s): Z79.01 - custodial (current) use of anticoagulants Status: Acute Assessment and Plan: coumadin on hold Subjective Date/time seen: 03/27/21 14:12 Interval history: she was able to sleep better last night Review of Systems Review of Systems: All systems reviewed & are unremarkable except as noted in HPI and below Exam Const: General: no acute distress Other: morbidly obese, lying in bed HENMT: General nose exam: Normal nares present Eyes: General: appearance normal, both eyes and all related structures Neck: Neck: supple Resp: Auscultation: clear to auscultation bilaterally Cardio: Rate: regular rate GI: Inspection: non-distended GI Palp: No Soft to palpation and No Guarding due to palpation present (GI) Auscultation: normal bowel sounds Skin: General skin exam: normal color Neuro: Speech: normal speech Extrem: General: normal to inspection Psych: Mental Status: mental status grossly normal Objective Data Vital Signs Vital Signs: Vital Signs - 24 hr 03/26/21 19:42 03/26/21 19:50 03/26/21 21:18 Temperature Pulse Rate 87 88 Respiratory Rate 18 18 Blood Pressure Pulse Oximetry 95 97 03/26/21 21:33 03/27/21 01:49 03/27/21 01:59 Temperature 98.2 F Pulse Rate 91 84 88 Respiratory Rate 20 18 18 Blood Pressure 119/61 Pulse Oximetry 97 03/27/21 05:52 03/27/21 07:17 03/27/21 07:20 Temperature 97.6 F Pulse Rate 94 80 Respiratory Rate 16 18 Blood Pressure 106/61 Pulse Oximetry 94 94 03/27/21 07:29 03/27/21 08:00 03/27/21 13:56 Temperature 96.9 F L Pulse Rate 85 89 Respiratory Rate 18 20 Blood Pressure 134/55 L Pulse Oximetry 96 98 94 03/27/21 13:57 Temperature Pulse Rate Respiratory Rate Blood Pressure Pulse Oximetry 94 Intake/Output Intake/Output: Intake & Output 03/24/21 03/25/21 03/26/21 03/27/21 23:59 23:59 23:59 23:59 Intake Total 4230 1020 850 855 Output Total 1675 2700 1900 600 Balance 6855 -7260 -8390 255 Meds/Results Medications: Active Medications Generic Name Dose Route Start Last Admin Trade Name Freq PRN Reason Stop Dose Admin Acetaminophen 650 mg 03/23/21 11:49 03/25/21 11:54 Acetaminophen 325 Mg Tablet PO 650 mg Q4H PRN Administration Mild Pain (1-3) or Fever Albuterol 5 mg 03/23/21 14:00 03/27/21 14:10 Albuterol Sulfate Neb 2.5 Mg/0.5 Ml Inh INHALATION 5 mg Q6HRT JESSICA Administration Albuterol 1 puff 03/23/21 11:56 Albuterol Sulfate (*Sp) Aerosol 1 Puff INHALATION DAILY PRN Shortness Of Breath Bisacodyl 5 mg 03/23/21 11:49 Bisacodyl 5 Mg Tablet Ec PO DAILY PRN Constipation Bisacodyl 20 mg 03/27/21 17:00 Bisacodyl 5 Mg Tablet Ec PO 03/27/21 17:01 ONCE ONE Calcium Carbonate 200 mg 03/24/21 16:21 03/26/21 21:07 Calcium Carbonate (Tums) 500 Mg (200 Mg Elemental) PO 200 mg Q4H PRN Administration Indigestion Famotidine 20 mg 03/24/21 21:00 03/27/21 08:33 Famotidine 20 Mg/2 Ml Vial IV PUSH 20 mg Q12HR JESSICA Adm
[2021-03-27] MEDS: BISACODYL 5 MG TABLET EC 20 MG PO (16:56)
[2021-03-27] MEDS: polyethylene glycoL 3350 238 GM BOTTLE PO (17:01)
[2021-03-28] VITALS (17 sets, daily range): BP systolic 120–156; BP diastolic 50–98; PULSE 79–104; RESP 16–33; TEMP 36.1–36.5; O2SAT 89–98
[2021-03-28] MEDS: IPRATROPIUM BR 0.02% INH SOLN 0.5 MG/2.5 ML VIAL INHALATION ×4 (02:50→20:45)
[2021-03-28] MEDS: CALCIUM CARBONATE (TUMS) 500 MG (200 MG ELEMENTAL) PO ×2 (04:17→17:13)
[2021-03-28] MEDS: MAGNESIUM CITRATE 300 ML BTL PO (04:17)
[2021-03-28] MEDS: ALBUTEROL SULFATE NEB 2.5 MG/0.5 ML INH 5 MG INHALATION ×4 (04:46→20:45)
--- NOTE | 2021-03-28 04:48 | PCRCNOTE ---
RN stated that the patient was undergoing bowel preparation; Apnea study was not completed
[2021-03-28 05:44] LABS: Hematocrit 29.3 % (37.0-47.0); Hemoglobin 8.7 g/dL (12.0-15.0)
[2021-03-28 05:54] LABS: INR 1.8; Prothrombin Time 21.9 Seconds (11.1-14.7)
[2021-03-28 05:57] LABS: Anion Gap 6 mmol/L (8-16); Blood Urea Nitrogen 5 mg/dL (7-17); Calcium 8.9 mg/dL (8.4-10.2); Carbon Dioxide 30 mmol/L (22-30); Chloride 103 mmol/L (98-107); Estimated CRCL calculation 143 ml/min; Estimated Glomerular Filt Rate > 60; Glucose 89 mg/dL (65-105); Magnesium 2.2 mg/dL (1.6-2.3); Potassium 3.5 mmol/L (3.4-5.0); Sodium 139 mmol/L (137-145)
[2021-03-28] MEDS: GABAPENTIN 300 MG CAPSULE PO ×3 (06:20→21:27)
[2021-03-28] MEDS: METOCLOPRAMIDE HCL 2.5 MG TABLET PO ×4 (06:20→21:28)
[2021-03-28] MEDS: FAMOTIDINE 20 MG/2 ML VIAL IV PUSH ×2 (08:42→21:28)
[2021-03-28] MEDS: MUPIROCIN 2% OINT 22 GM TUBE 1 APPLIC TOPICAL (09:18)
--- NOTE | 2021-03-28 11:19 | PCNFU ---
Nutrition Follow-Up Complete: Inadequate oral food and beverage intake related to GERD as evidence by chronic vomitting and poor appetite. Goal: Meet estimated nutritional needs. Progressing towards goal. We will continue current goal. Pt current nutrition is NPO, was heart healthy. Last recorded weight is 176 kg, last reported weight 03/23, recommend re-weight. Bowel Motility:+BM reported 03/27 Labs Reviewed:BUN 5,Hct 29.3,Hgb 8.7 Meds Noted:Zosyn,Fe,Reglan,MVI, Pepcid,Tums. Additional Notes:Patient seen today for nutrition follow up. State to eating a good dinner meal last night. Overall appetite has been fair. She is NPO for EGD/colonoscopy today. 03/26:MBS-passed. Broken Dentition noted. Agree with diet orders. Monitoring: Follow up in 5 days.
--- NOTE | 2021-03-28 12:06 | WPDANESEPPF ---
Anes - Initial Pre Proc Eval Procedure: Operation Date: 03/28/21 13:30 Proposed Procedures p Esophagogastroduodenoscopy & Colonoscopy - German Goins MD Date/Time: 03/28/21 12:06 Surgeon: Naina Chaudhari PA-C Pre Op Diagnosis: acute respiratory failure with hypoxia,suspected a Patient Data Age: 56 Gender: F Height: 6 ft 1 in Weight: 176 kg Last Vital Signs Temp 96.9 F L 03/28/21 06:00 Pulse 79 03/28/21 08:42 Resp 16 03/28/21 08:42 BP 131/67 03/28/21 06:00 Pulse Ox 89 L 03/28/21 08:42 Allergies Allergy/AdvReac Type Severity Reaction Status Date / Time No Known Allergies Allergy Verified 03/28/21 12:36 Home Medications Medication Instructions Recorded Confirmed Type Antacid (calcium carbonate) 1 tab-cap PO TID 12/12/20 03/23/21 History acetaminophen 650 mg 650 mg PO Q12H 03/09/21 03/23/21 History tablet,extended release albuterol 90 mcg/actuation aerosol 180 mcg INHALATION DAILY PRN 03/09/21 03/23/21 History inhaler gabapentin 300 mg capsule 300 mg PO TID 03/09/21 03/23/21 History multivitamin 1 tablet PO DAILY 03/09/21 03/23/21 History omeprazole 40 mg capsule,delayed 40 mg PO BID #60 cap 03/09/21 03/23/21 Rx release warfarin 5 mg tablet 5 mg PO DAILY 03/09/21 03/23/21 History sucralfate 1 g PO BID PRN 03/23/21 03/23/21 History Laboratory Tests 03/28/21 03/28/21 03/28/21 05:21 05:21 05:21 Hgb 8.7 g/dL L g/dL (12.0-15.0) Hct 29.3 % L % (37.0-47.0) PT 21.9 Seconds H Seconds (11.1-14.7) INR 1.8 Sodium 139 mmol/L mmol/L (137-145) Potassium 3.5 mmol/L mmol/L (3.4-5.0) Chloride 103 mmol/L mmol/L (98-107) Carbon Dioxide 30 mmol/L mmol/L (22-30) Anion Gap 6 mmol/L L mmol/L (8-16) BUN 5 mg/dL L mg/dL (7-17) Creatinine 0.70 mg/dL mg/dL (0.7-1.0) Estim Creat Clear Calc 143 ml/min ml/min Estimated GFR > 60 (59 - ) Glucose 89 mg/dL mg/dL (65-105) Calcium 8.9 mg/dL mg/dL (8.4-10.2) Magnesium 2.2 mg/dL mg/dL (1.6-2.3) Patient hx anesthesia problems: none Family hx anesthesia problems: none [facility] Past Medical History Medical History (Updated 03/27/21 @ 12:59 by Naina Chaudhari PA-C) Allergies Anemia Anticoagulated on Coumadin Blood clot in vein Chronic GERD Encounter for screening colonoscopy Gallbladder & bile duct stone with obstruction Headaches, cluster History of pulmonary embolism On Coumadin IBS (irritable bowel syndrome) Morbid obesity Neuropathy Bilateral feet and toes Obesity Supratherapeutic INR Surgical History Surgical History (Updated 03/23/21 @ 16:58 by Kelley Blackwood NP) History of tonsillectomy and adenoidectomy Family History Family History (Updated 03/23/21 @ 16:59 by Kelley Blackwood NP) Mother Thyroid cancer Dementia Father Osteoarthritis Social History Social History (Updated 03/23/21 @ 17:00 by Kelley Blackwood NP) Social History: The patient lives with her . He is the power energy attorney for healthcare. The patient desires to be a full code. The patient is a former smoker. She smoked for approximately 30 years. The patient tells me that she quit smoking about 9 years ago. She is the homemaker. She has 1 stepchild but no biological children. Smoking packs per day: 2 Smoking cigarettes per day: 40.0 Years smoked: 30 Smoking pack-years: 60.00 Smoking status: Former smoker Tobacco type: cigarettes Smoking end date: 03/30/21 Alcohol intake: never Substance use: never Gender identity (if verbalized by the patient): Female Spiritual care concerns: No Anes - Eval Final PreProcedure Day of Procedure 03/28/21 12:06 Patient weight: super morbidly obese Heart: regular rate and rhythm Lungs: clear to auscultation Airway: Mallampati scale class III Neurological: alert and orient
--- NOTE | 2021-03-28 12:34 | PCPTNOTE ---
The PT treatment was not completed today due to patient refusal. Patient having procedure later and asked to skip PT today. Will continue per Plan of Care frequency and duration.
[2021-03-28] MEDS: LACTATED RINGERS 1,000 ML 150 ML IV CONT (12:49)
--- NOTE | 2021-03-28 13:05 | PM.IMPN ---
Progress Note: A&P Assessment and Plan (1) Acute respiratory failure with hypoxia: Code(s): J96.01 - Acute respiratory failure with hypoxia Status: Acute Assessment and Plan: Patient has been on 2 L of oxygen via nasal cannula since arrival. Could be due to underlying aspiration pneumonia versus obesity hypoventilation syndrome her versus sleep apnea versus other. Patient is 94% on room air. Appears comfortable. Will get apnea link. Continue with IV antibiotics and duoneb treatments at this time Will continue wean oxygen as tolerated (2) Aspiration pneumonia: Code(s): J69.0 - Pneumonitis due to inhalation of food and vomit Status: Acute Assessment and Plan: Patient presented to the hospital due to possible aspiration pneumonia. She was at home and had eaten then woke coughing, felt like there was acid in the back of her throat that began having some trouble breathing. Mild airspace opacity in right lower lung zone, consistent with atelectasis versus pneumonia. The patient has been on 2 L of oxygen via nasal cannula due to acute respiratory failure with hypoxia from aspiration pneumonia. Now on room air without any issues. IV antibiotics with Zosyn Day #6 White blood cell count has normalized, normal neutrophil count GI was consulted for further evaluation and possible EGD due to Followed by GI, endoscopy Aspiration precautions initiated Continue monitoring. (3) Iron deficiency anemia: Code(s): D50.9 - Iron deficiency anemia, unspecified Status: Acute Assessment and Plan: Acute iron deficiencyanemia. Patient had normal Hgb 11/30/20 and on arrival 03/23/21 Hgb was 10. Patients H&H has slowly decreased during admission. Could be secondary to acute gastritis vs duodenal ulcer vs supratherapeutic INR verses other. Will give 3 doses of IV Venofer (#2) due to iron deficiency, then start Ferrous Sulfate upon discharge Monitor H&H which seems to be stabilized at this time. Hgb 8.1/Hct 28%. GI is on board to preform EGD and Colonoscopy to evaluate source. Continue monitoring H&H. Transfuse if Hgb less than 7 (4) Obesity: Code(s): E66.9 - Obesity, unspecified Status: Chronic Assessment and Plan: Lifestyle modifications encouraged PT/OT to continue working with the patient (5) Neuropathy: Code(s): G62.9 - Polyneuropathy, unspecified Status: Chronic Assessment and Plan: Continue with gabapentin (6) Chronic GERD: Code(s): K21.9 - Gastro-esophageal reflux disease without esophagitis Status: Chronic Assessment and Plan: Patient is on Metoclopramide ACHS, Famotidine IV 20 mg Q12hrs and PRN Tums. Continue monitoring. (7) Supratherapeutic INR: Code(s): R79.1 - Abnormal coagulation profile Status: Acute Assessment and Plan: Patient is on warfarin due to history of pulmonary embolism back in December 2020. INR was 4.0 on arrival to the ER. We have held the patient's warfarin at this time. INR is 2.1. We are wanting to do an EGD on the patient but her INR has to be less than 1.7. Will recheck in the morning. (8) Mass of right wrist: Code(s): R22.31 - Localized swelling, mass and lump, right upper limb Status: Acute Assessment and Plan: Large fluid filled mass, that was drained and fluid was collected. No signs of acute infection at this time. There is a mass palpated after fluid was removed. She needs follow up with Plastic Surgeon for further evaluation. Patient states she has been thinking about following up. She understands and agrees with the plan. Al
[2021-03-28] MEDS: BENZOCAINE (*SP) 60 ML SPRAY CAN (HURRICAINE) 1 SPRAY MUCOUS MEM (13:20)
--- NOTE | 2021-03-28 13:39 | PC.NURSE ---
On 03/28/21, the student, [Meche Barrera ], provided care and completed [facility] documentation on this patient. I have reviewed the student's documentation and agree with the findings.
--- NOTE | 2021-03-28 14:02 | PCOTNOTE ---
Attempted to see patient this pm, however patient off floor for testing at this time.
[2021-03-28] MEDS: SALINE 0.65% NAS SOLN 44 ML BTL 1 SPRAY NASAL (14:08)
[2021-03-28] MEDS: MULTIVITAMINS THERAPEUTIC TAB (*BKC) 1 TABLET PO (14:56)
[2021-03-28] MEDS: SUCRALFATE SUSP 100 MG/ML 10 ML UDC 1000 MG PO ×2 (17:08→21:27)
[2021-03-28] MEDS: ACETAMINOPHEN 325 MG TABLET 650 MG PO (17:09)
[2021-03-28] MEDS: PANTOPRAZOLE SODIUM IV 40 MG VIAL IV PUSH (21:27)
[2021-03-29] VITALS (13 sets, daily range): BP systolic 93–135; BP diastolic 40–96; PULSE 84–92; RESP 16–31; TEMP 36.1–37; O2SAT 95–100
--- NOTE | 2021-03-29 04:29 | PCRCNOTE ---
0200 breathing treatment not administered due to patient being on an apnea link.
[2021-03-29 05:34] LABS: Basophils Absolute Auto 0.1 K/mm3 (0.0-0.1); Basophils Percent Auto 0.6 % (0.2-1.2); Eosinophils Absolute Auto 0.6 K/mm3 (0-0.3); Eosinophils Percent Auto 6.5 % (0-4.4); Hematocrit 29.1 % (37.0-47.0); Hemoglobin 8.6 g/dL (12.0-15.0); Immature Granulocyte Absolute 0.04 K/mm3 (0.00-0.031); Immature Granulocyte Percent A 0.4 % (0-0.5); Lymphocytes Percent Auto 18.2 % (18.3-44.2); Mean Corpuscular HGB Conc 29.6 g/dl (32-36); Mean Corpuscular Hemoglobin 21.3 pg (26-34); Mean Platelet Volume 9.2 fl (7.4-10.4); Monocytes Absolute Auto 0.8 K/mm3 (0.1-0.6); Monocytes Percent Auto 8.5 % (2.6-8.5); Neutrophils Absolute Auto 6.1 K/mm3 (1.3-6.7); Neutrophils Percent Auto 65.8 % (45.5-73.1); Nucleated Red Blood Cells Perc 0.2 % (0.0-0.2); Platelet Count Result 532 k/mm3 (150-375); Red Blood Count 4.04 M/mm3 (4.2-5.4); White Blood Count 9.3 K/mm3 (4.5-10.0)
[2021-03-29 05:51] LABS: Anion Gap 5 mmol/L (8-16); Blood Urea Nitrogen 5 mg/dL (7-17); Calcium 8.2 mg/dL (8.4-10.2); Carbon Dioxide 29 mmol/L (22-30); Chloride 103 mmol/L (98-107); Estimated CRCL calculation 143 ml/min; Estimated Glomerular Filt Rate > 60; Glucose 99 mg/dL (65-105); Potassium 3.3 mmol/L (3.4-5.0); Sodium 137 mmol/L (137-145)
[2021-03-29 05:58] LABS: INR 1.6
[2021-03-29 06:20] LABS: Anisocytosis 1+ (NORMAL); Hypochromasia 1+ (NORMAL); Ovalocytes 1+ (NORMAL); Platelet Estimate Adequate (Adequate)
[2021-03-29] MEDS: ALBUTEROL SULFATE NEB 2.5 MG/0.5 ML INH 5 MG INHALATION ×2 (08:04→20:17)
[2021-03-29] MEDS: IPRATROPIUM BR 0.02% INH SOLN 0.5 MG/2.5 ML VIAL INHALATION ×2 (08:04→20:17)
[2021-03-29] MEDS: PANTOPRAZOLE SODIUM IV 40 MG VIAL IV PUSH ×2 (09:04→20:39)
[2021-03-29] MEDS: FAMOTIDINE 20 MG/2 ML VIAL IV PUSH ×2 (09:04→20:39)
[2021-03-29] MEDS: MUPIROCIN 2% OINT 22 GM TUBE 1 APPLIC TOPICAL (09:07)
--- NOTE | 2021-03-29 10:15 | PC.NURSE ---
To GI Lab per wheelchair, IV LFA. Report given to Asuncion WILLS.
[2021-03-29] MEDS: LACTATED RINGERS 1,000 ML 150 ML IV CONT (10:41)
--- NOTE | 2021-03-29 11:02 | WPDANESEPPF ---
Anes - Initial Pre Proc Eval Procedure: Operation Date: 03/28/21 13:30 Proposed Procedures p Esophagogastroduodenoscopy & Colonoscopy - German Goins MD Operation Date: 03/29/21 11:45 Proposed Procedures p Esophagogastroduodenoscopy & Colonoscopy - German Goins MD Date/Time: 03/29/21 11:02 Surgeon: Naina Chaudhari PA-C Pre Op Diagnosis: acute respiratory failure with hypoxia,suspected a Patient Data Age: 56 Gender: F Height: 1.85 m Weight: 176 kg Last Vital Signs Temp 36.6 C 03/29/21 10:31 Pulse 91 03/29/21 10:31 Resp 20 03/29/21 10:31 BP 131/67 03/29/21 10:31 Pulse Ox 95 03/29/21 10:31 Allergies Allergy/AdvReac Type Severity Reaction Status Date / Time No Known Allergies Allergy Verified 03/29/21 10:26 Home Medications Medication Instructions Recorded Confirmed Type Antacid (calcium carbonate) 1 tab-cap PO TID 12/12/20 03/23/21 History acetaminophen 650 mg 650 mg PO Q12H 03/09/21 03/23/21 History tablet,extended release albuterol 90 mcg/actuation aerosol 180 mcg INHALATION DAILY PRN 03/09/21 03/23/21 History inhaler gabapentin 300 mg capsule 300 mg PO TID 03/09/21 03/23/21 History multivitamin 1 tablet PO DAILY 03/09/21 03/23/21 History omeprazole 40 mg capsule,delayed 40 mg PO BID #60 cap 03/09/21 03/23/21 Rx release warfarin 5 mg tablet 5 mg PO DAILY 03/09/21 03/23/21 History sucralfate 1 g PO BID PRN 03/23/21 03/23/21 History Laboratory Tests 03/29/21 03/29/21 03/29/21 05:03 05:03 05:03 WBC 9.3 K/mm3 K/mm3 (4.5-10.0) RBC 4.04 M/mm3 L M/mm3 (4.2-5.4) Hgb 8.6 g/dL L g/dL (12.0-15.0) Hct 29.1 % L % (37.0-47.0) MCV 72.0 fl L fl (80-100) MCH 21.3 pg L pg (26-34) MCHC 29.6 g/dl L g/dl (32-36) RDW 17.0 % H % (11.5-14.5) Plt Count 532 k/mm3 H k/mm3 (150-375) MPV 9.2 fl fl (7.4-10.4) Immature Gran % (Auto) 0.4 % % (0-0.5) Neut % (Auto) 65.8 % % (45.5-73.1) Lymph % (Auto) 18.2 % L % (18.3-44.2) [place] % (Auto) 8.5 % % (2.6-8.5) Eos % (Auto) 6.5 % H % (0-4.4) Baso % (Auto) 0.6 % % (0.2-1.2) Lymph # (Auto) 1.70 K/mm3 K/mm3 (0.9-3.2) [place] # (Auto) 0.8 K/mm3 H K/mm3 (0.1-0.6) Eos # (Auto) 0.6 K/mm3 H K/mm3 (0-0.3) Baso # (Auto) 0.1 K/mm3 K/mm3 (0.0-0.1) Abs Immat Gran (auto) 0.04 K/mm3 H K/mm3 (0.00-0.031) Absolute Neuts (auto) 6.1 K/mm3 K/mm3 (1.3-6.7) Absolute Nucleated RBC 0.0 K/mm3 K/mm3 (0.0-0.012) Nucleated RBC % 0.2 % % (0.0-0.2) Platelet Estimate Adequate (Adequate) Hypochromasia 1+ (NORMAL) Anisocytosis 1+ (NORMAL) Ovalocytes 1+ (NORMAL) PT 20.0 Seconds H Seconds (11.1-14.7) INR 1.6 Sodium 137 mmol/L mmol/L (137-145) Potassium 3.3 mmol/L L mmol/L (3.4-5.0) Chloride 103 mmol/L mmol/L (98-107) Carbon Dioxide 29 mmol/L mmol/L (22-30) Anion Gap 5 mmol/L L mmol/L (8-16) BUN 5 mg/dL L mg/dL (7-17) Creatinine 0.70 mg/dL mg/dL (0.7-1.0) Estim Creat Clear Calc 143 ml/min ml/min Estimated GFR > 60 (59 - ) Glucose 99 mg/dL mg/dL (65-105) Calcium 8.2 mg/dL L mg/dL (8.4-10.2) Patient hx anesthesia problems: none Family hx anesthesia problems: none [facility] Past Medical History Medical History (Updated 03/28/21 @ 13:09 by Naina Chaudhari PA-C) Allergies Anemia Anticoagulated on Coumadin Blood clot in vein Chronic GERD Encounter for screening colonoscopy Gallbladder & bile duct stone with obstruction Headaches, cluster History of pulmonary embolism On Coumadin IBS (irritable bowel syndrome) Morbid obesity Neuropathy Bilateral feet and toes Obesity
--- NOTE | 2021-03-29 11:35 | PCOTNOTE ---
Attempted to see patient this am, however patient off floor for testing at this time.
--- NOTE | 2021-03-29 14:10 | PC.NURSE ---
Returned from GI Lab. Report received from Che.
[2021-03-29] MEDS: MULTIVITAMINS THERAPEUTIC TAB (*BKC) 1 TABLET PO (14:28)
[2021-03-29] MEDS: GABAPENTIN 300 MG CAPSULE PO ×2 (14:30→20:40)
[2021-03-29] MEDS: METOCLOPRAMIDE HCL 2.5 MG TABLET PO ×3 (14:30→20:39)
[2021-03-29] MEDS: SUCRALFATE SUSP 100 MG/ML 10 ML UDC 1000 MG PO ×3 (14:30→20:39)
--- NOTE | 2021-03-29 14:52 | PCPTNOTE ---
The PT treatment was unable to be completed today due to patient out of room for procedure. Will continue per Plan of Care frequency and duration.
--- NOTE | 2021-03-29 14:57 | PM.TDS ---
Transfer Discharge Sum: Prov Provider Date of admission: 03/24/21 09:19 Primary care physician: Therese Marin, DO Admitting clinician: Candi Renteria MD Consults: 03/23/21 Consult to Respiratory Therapy Routine Reason for Consult:: resp failure 03/25/21 Consult to Physician Routine Comment: Spoke with Dr Morales @ 1005 (,[place]) Consulting Provider: German Goins Reason for consultation: Severe GERD Has provider been notified: Yes 03/26/21 08:00 Wound/ET Consult Routine Reason for Consult:: Left abdominal fold open area with slough DS: Admitting Diagnosis Admitting Diagnosis Admitting Diagnosis: SOB DS: Discharge Diagnosis Discharge Diagnosis (1) Gastric outlet obstruction: Code(s): K31.1 - Adult hypertrophic pyloric stenosis Status: Acute Assessment and Plan: EGD today showed Gastric Outlet Obstruction, Pyloric stenosis, Gastritis, Severe Reflux esophagitis. GI concerned may need partial gastrectomy or duodenal stenting. Called [facility] and was accepted to Dr. Ajay NUÑEZ for transfer and further evaluation and monitoring. Will send radiology discs and try to send EGD pictures. Continue IV PPI, Reglan 2.5 mg ACHS, Carafate 1000 mg ACHS. (2) Pyloric stenosis: Code(s): K31.1 - Adult hypertrophic pyloric stenosis Status: Acute Assessment and Plan: See above (3) Gastritis: Code(s): K29.70 - Gastritis, unspecified, without bleeding Status: Acute Assessment and Plan: Continue PPI, could be cause of Iron def anemia (4) Esophagitis: Code(s): K20.90 - Esophagitis, unspecified without bleeding Status: Acute Assessment and Plan: Continue PPI, could be caused by GERD (5) Acute respiratory failure with hypoxia: Code(s): J96.01 - Acute respiratory failure with hypoxia Status: Acute Assessment and Plan: Patient has been on 2 L of oxygen via nasal cannula since arrival. Could be due to underlying aspiration pneumonia versus obesity hypoventilation syndrome her versus sleep apnea versus other. Patient is 96% on room air. Appears comfortable. Apnea link showed AHI elevated at 6.4, RI 7.4 and MELISSA elevated at 16.2. Will need to follow up with [facility] testing as an outpatient. (6) Aspiration pneumonia: Code(s): J69.0 - Pneumonitis due to inhalation of food and vomit Status: Acute Assessment and Plan: Patient presented to the hospital due to possible aspiration pneumonia. She was at home and had eaten then woke coughing, felt like there was acid in the back of her throat that began having some trouble breathing. Mild airspace opacity in right lower lung zone, consistent with atelectasis versus pneumonia. The patient has been on 2 L of oxygen via nasal cannula due to acute respiratory failure with hypoxia from aspiration pneumonia. Now on room air without any issues. Continue with IV antibiotics Day #7 of Zosyn, can stop 03/30 after morning dose. White blood cell count has normalized, normal neutrophil count Aspiration precautions initiated (7) Iron deficiency anemia: Code(s): D50.9 - Iron deficiency anemia, unspecified Status: Acute Assessment and Plan: Acute iron deficiencyanemia. Patient had normal Hgb 11/30/20 and on arrival 03/23/21 Hgb was 10. Patients H&H has slowly decreased during admission. Could be secondary to acute gastritis vs duodenal ulcer vs supratherapeutic INR verses other. Will give 3 doses of IV Venofer (#2) due to iron deficiency, then start Ferrous Sulfate upon discharge Monitor H&H which seems to be stabilized at this time. Hgb 8.1/Hct 28%. GI is on board to preform EGD and Colonoscopy to evaluate source. Continue monitoring H&H. Transfuse if Hgb less than 7
[2021-03-29] MEDS: ACETAMINOPHEN 325 MG TABLET 650 MG PO (20:40)
== END 2021-03-29 22:57 | disposition short-term general hospital (02) | DRG 177 ==
LOC: ANHED 09:55 → ANH2MED 11:16
PROVIDERS: Internal Medicine Gastroenterology; Nurse Practitioner; Nurse Practitioner Adult Health; Admitting Provider Hospitalist; Emergency Provider Emergency Medicine; PCP Internal Medicine; Visit Provider Physician Assistant
PROC: 0DJ08ZZ Inspection of Upper Intestinal Tract, Via Natural or Artificial Opening Endoscopic (ICD-10-PCS; CPT 43235; principal; 2021-03-28 13:30)
DX: J69.0 Pneumonitis due to inhalation of food and vomit (principal); J96.01 Acute respiratory failure with hypoxia; K31.1 Adult hypertrophic pyloric stenosis; Z68.43 Body mass index [BMI] 50.0-59.9, adult; E66.2 Morbid (severe) obesity with alveolar hypoventilation; K25.3 Acute gastric ulcer without hemorrhage or perforation; K21.00 Gastro-esophageal reflux disease with esophagitis, without bleeding; K57.30 Diverticulosis of large intestine without perforation or abscess without bleeding; K63.5 Polyp of colon; K64.8 Other hemorrhoids; D50.0 Iron deficiency anemia secondary to blood loss (chronic); R63.4 Abnormal weight loss; K31.84 Gastroparesis; K29.70 Gastritis, unspecified, without bleeding; G62.9 Polyneuropathy, unspecified; R79.1 Abnormal coagulation profile; R22.31 Localized swelling, mass and lump, right upper limb; K21.9 Gastro-esophageal reflux disease without esophagitis; K58.9 Irritable bowel syndrome, unspecified; Z86.711 Personal history of pulmonary embolism; Z86.16 Personal history of COVID-19; Z79.01 Long term (current) use of anticoagulants; Z87.891 Personal history of nicotine dependence
CPT/HCPCS: 36415; 36600; 71045; 80048; 80053; 82375; 82805; 83050; 83540; 83550; 83605; 83735; 84443; 85014; 85018; 85025; 85610; 85730; 87040; 87081; 88305; 92610; 93005; 94640; 94762; 96361; 96365; 96367; 96376; 97110; 97116; 97162; 97165; 97530; 97535; 99285; A9270; C9113; G0378; J0295; J0330; J0456; J0696; J1756; J2370; J2543; J2704; J3480; J7120

== ENCOUNTER 2021-11-12 14:52 | Outpatient (CLI) | payer OTHER, SELFPAY ==
[2021-11-12 15:15] LABS: Hematocrit 47.4 % (37.0-47.0); Hemoglobin 15.1 g/dL (12.0-15.0); Mean Corpuscular HGB Conc 31.9 g/dl (32-36); Mean Corpuscular Hemoglobin 28.3 pg (26-34); Mean Corpuscular Volume 88.8 fl (80-100); Mean Platelet Volume 9.3 fl (7.4-10.4); Platelet Count Result 214 k/mm3 (150-375); Red Blood Count 5.34 M/mm3 (4.2-5.4); Red Cell Distribution Width 14.8 % (11.5-14.5); White Blood Count 8.3 K/mm3 (4.5-10.0)
[2021-11-12 16:18] LABS: Iron 111 ug/dL (37-170)
[2021-11-12 16:27] LABS: Percent Iron Saturation 35 % (20-50)
[2021-11-12 17:13] LABS: Vitamin B12 > 1000.0 pg/mL (239-931)
== END 2021-11-12 14:53 | disposition home or self-care (01) ==
PROVIDERS: Visit Provider Internal Medicine Hematology & Oncology
DX: D64.9 Anemia, unspecified (principal)
CPT/HCPCS: 36415; 82607; 82728; 83540; 83550; 85027

== ENCOUNTER 2022-02-13 11:43 | Outpatient (CLI) | payer OTHER, SELFPAY ==
[2022-02-13 12:14] LABS: Basophils Percent Auto 0.5 % (0.2-1.2); Eosinophils Absolute Auto 0.1 K/mm3 (0-0.3); Eosinophils Percent Auto 1.2 % (0-4.4); Hematocrit 47.2 % (37.0-47.0); Hemoglobin 15.4 g/dL (12.0-15.0); Immature Granulocyte Absolute 0.01 K/mm3 (0.00-0.031); Immature Granulocyte Percent A 0.2 % (0-0.5); Lymphocytes Absolute Auto 1.92 K/mm3 (0.9-3.2); Lymphocytes Percent Auto 32.4 % (18.3-44.2); Mean Corpuscular HGB Conc 32.6 g/dl (32-36); Mean Platelet Volume 9.1 fl (7.4-10.4); Monocytes Absolute Auto 0.4 K/mm3 (0.1-0.6); Monocytes Percent Auto 6.2 % (2.6-8.5); Neutrophils Absolute Auto 3.5 K/mm3 (1.3-6.7); Neutrophils Percent Auto 59.5 % (45.5-73.1); Platelet Count Result 220 k/mm3 (150-375); Red Blood Count 4.97 M/mm3 (4.2-5.4); Red Cell Distribution Width 11.8 % (11.5-14.5); White Blood Count 5.9 K/mm3 (4.5-10.0)
[2022-02-13 13:21] LABS: Iron 162 ug/dL (37-170)
[2022-02-13 13:31] LABS: Percent Iron Saturation 52 % (20-50)
[2022-02-13 13:37] LABS: Alanine Aminotransferase 39 U/L (4-35); Albumin Level 4.3 g/dL (3.5-5.1); Alkaline Phosphatase 93 U/L (38-126); Anion Gap 9 mmol/L (8-16); Aspartate Amino Transferase 34 U/L (14-36); Bilirubin,Total 0.5 mg/dL (0.2-1.3); Blood Urea Nitrogen 27 mg/dL (7-17); Calcium 9.4 mg/dL (8.4-10.2); Carbon Dioxide 25 mmol/L (22-30); Chloride 107 mmol/L (98-107); Estimated Glomerular Filt Rate > 60; Glucose 96 mg/dL (65-110); Potassium 3.9 mmol/L (3.4-5.0); Sodium 141 mmol/L (137-145)
[2022-02-13 14:35] LABS: Folic Acid > 20.0 ng/mL (2.76->20); Vitamin B12 > 1000.0 pg/mL (239-931)
== END 2022-02-13 11:44 | disposition home or self-care (01) ==
LOC: ANHLAB 11:45
PROVIDERS: Visit Provider Internal Medicine Hematology & Oncology
DX: D64.9 Anemia, unspecified (principal)
CPT/HCPCS: 36415; 80053; 82607; 82728; 82746; 83540; 83550; 85025

== ENCOUNTER 2022-05-22 13:13 | Outpatient (CLI) | payer OTHER, SELFPAY ==
[2022-05-22 13:33] LABS: Basophils Percent Auto 0.4 % (0.2-1.2); Eosinophils Absolute Auto 0.1 K/mm3 (0-0.3); Eosinophils Percent Auto 1.5 % (0-4.4); Hematocrit 45.2 % (37.0-47.0); Hemoglobin 14.7 g/dL (12.0-15.0); Immature Granulocyte Absolute 0.01 K/mm3 (0.00-0.031); Immature Granulocyte Percent A 0.1 % (0-0.5); Lymphocytes Absolute Auto 1.88 K/mm3 (0.9-3.2); Mean Corpuscular HGB Conc 32.5 g/dl (32-36); Mean Corpuscular Hemoglobin 29.8 pg (26-34); Mean Corpuscular Volume 91.7 fl (80-100); Mean Platelet Volume 8.7 fl (7.4-10.4); Monocytes Absolute Auto 0.4 K/mm3 (0.1-0.6); Monocytes Percent Auto 6.4 % (2.6-8.5); Neutrophils Absolute Auto 4.3 K/mm3 (1.3-6.7); Neutrophils Percent Auto 63.6 % (45.5-73.1); Platelet Count Result 248 k/mm3 (150-375); Red Blood Count 4.93 M/mm3 (4.2-5.4); White Blood Count 6.7 K/mm3 (4.5-10.0)
[2022-05-22 14:40] LABS: Iron 95 ug/dL (37-170)
[2022-05-22 14:49] LABS: Percent Iron Saturation 31 % (20-50)
[2022-05-22 15:50] LABS: Folic Acid 12.5 ng/mL (2.76->20)
== END 2022-05-22 13:14 | disposition home or self-care (01) ==
LOC: ANHLAB 13:14
PROVIDERS: Visit Provider Internal Medicine Hematology & Oncology
DX: D64.9 Anemia, unspecified (principal)
CPT/HCPCS: 36415; 82607; 82728; 82746; 83540; 83550; 85025

== ENCOUNTER 2022-11-06 13:39 | Outpatient (CLI) | payer OTHER, SELFPAY ==
[2022-11-06 14:00] LABS: Basophils Percent Auto 0.5 % (0.2-1.2); Eosinophils Absolute Auto 0.2 K/mm3 (0-0.3); Eosinophils Percent Auto 2.3 % (0-4.4); Hematocrit 45.8 % (37.0-47.0); Immature Granulocyte Absolute 0.02 K/mm3 (0.00-0.031); Immature Granulocyte Percent A 0.3 % (0-0.5); Lymphocytes Percent Auto 25.8 % (18.3-44.2); Mean Corpuscular HGB Conc 32.8 g/dl (32-36); Mean Corpuscular Hemoglobin 30.2 pg (26-34); Mean Corpuscular Volume 92.3 fl (80-100); Mean Platelet Volume 8.9 fl (7.4-10.4); Monocytes Absolute Auto 0.5 K/mm3 (0.1-0.6); Monocytes Percent Auto 5.9 % (2.6-8.5); Neutrophils Absolute Auto 5.1 K/mm3 (1.3-6.7); Neutrophils Percent Auto 65.2 % (45.5-73.1); Platelet Count Result 270 k/mm3 (150-375); Red Blood Count 4.96 M/mm3 (4.2-5.4); White Blood Count 7.8 K/mm3 (4.5-10.0)
[2022-11-06 15:57] LABS: Iron 91 ug/dL (37-170)
[2022-11-06 16:02] LABS: Alanine Aminotransferase 79 U/L (6-35); Albumin Level 4.5 g/dL (3.5-5.1); Alkaline Phosphatase 130 U/L (38-126); Anion Gap 7 mmol/L (8-16); Aspartate Amino Transferase 48 U/L (14-36); Bilirubin,Total 0.4 mg/dL (0.2-1.3); Blood Urea Nitrogen 20 mg/dL (7-17); Calcium 9.2 mg/dL (8.4-10.2); Carbon Dioxide 27 mmol/L (22-30); Chloride 105 mmol/L (98-107); Estimated Glomerular Filt Rate > 60; Glucose 98 mg/dL (65-110); Potassium 4.1 mmol/L (3.4-5.0); Sodium 139 mmol/L (137-145)
[2022-11-06 16:09] LABS: Percent Iron Saturation 28 % (20-50)
[2022-11-06 17:12] LABS: Folic Acid > 20.0 ng/mL (2.76->20)
== END 2022-11-06 13:40 | disposition home or self-care (01) ==
PROVIDERS: Visit Provider Internal Medicine Hematology & Oncology
DX: D64.9 Anemia, unspecified (principal)
CPT/HCPCS: 36415; 80053; 82607; 82728; 82746; 83540; 83550; 85025

== ENCOUNTER 2023-05-07 14:30 | Outpatient (CLI) | payer OTHER, SELFPAY ==
[2023-05-07 14:48] LABS: Basophils Absolute Auto 0.1 K/mm3 (0.0-0.1); Basophils Percent Auto 0.7 % (0.2-1.2); Eosinophils Absolute Auto 0.1 K/mm3 (0-0.3); Eosinophils Percent Auto 1.6 % (0-4.4); Hematocrit 44.3 % (37.0-47.0); Hemoglobin 14.7 g/dL (12.0-15.0); Immature Granulocyte Absolute 0.01 K/mm3 (0.00-0.031); Immature Granulocyte Percent A 0.1 % (0-0.5); Lymphocytes Absolute Auto 2.23 K/mm3 (0.9-3.2); Lymphocytes Percent Auto 32.1 % (18.3-44.2); Mean Corpuscular HGB Conc 33.2 g/dl (32-36); Mean Corpuscular Hemoglobin 29.8 pg (26-34); Mean Corpuscular Volume 89.9 fl (80-100); Mean Platelet Volume 8.4 fl (7.4-10.4); Monocytes Absolute Auto 0.4 K/mm3 (0.1-0.6); Monocytes Percent Auto 5.5 % (2.6-8.5); Neutrophils Absolute Auto 4.2 K/mm3 (1.3-6.7); Platelet Count Result 246 k/mm3 (150-375); Red Blood Count 4.93 M/mm3 (4.2-5.4); Red Cell Distribution Width 12.5 % (11.5-14.5)
[2023-05-07 16:25] LABS: Iron 109 ug/dL (37-170)
[2023-05-07 16:28] LABS: Anion Gap 9 mmol/L (8-16); Blood Urea Nitrogen 21 mg/dL (7-17); Calcium 8.8 mg/dL (8.4-10.2); Carbon Dioxide 26 mmol/L (22-30); Chloride 104 mmol/L (98-107); Estimated Glomerular Filt Rate > 60; Glucose 98 mg/dL (65-110); Potassium 3.8 mmol/L (3.4-5.0); Sodium 139 mmol/L (137-145)
[2023-05-07 16:35] LABS: Percent Iron Saturation 37 % (20-50)
[2023-05-07 17:44] LABS: Folic Acid > 20.0 ng/mL (2.76->20)
== END 2023-05-07 14:31 | disposition home or self-care (01) ==
PROVIDERS: Visit Provider Internal Medicine Hematology & Oncology
DX: D64.9 Anemia, unspecified (principal)
CPT/HCPCS: 36415; 80048; 82607; 82728; 82746; 83540; 83550; 85025

== ENCOUNTER 2023-11-06 14:52 | Outpatient (CLI) | payer OTHER, SELFPAY ==
[2023-11-06 15:11] LABS: Basophils Percent Auto 0.6 % (0.2-1.2); Eosinophils Absolute Auto 0.2 K/mm3 (0-0.3); Eosinophils Percent Auto 2.5 % (0-4.4); Hematocrit 45.1 % (37.0-47.0); Hemoglobin 15.1 g/dL (12.0-15.0); Immature Granulocyte Absolute 0.03 K/mm3 (0.00-0.031); Immature Granulocyte Percent A 0.5 % (0-0.5); Lymphocytes Absolute Auto 2.11 K/mm3 (0.9-3.2); Lymphocytes Percent Auto 33.2 % (18.3-44.2); Mean Corpuscular HGB Conc 33.5 g/dl (32-36); Mean Corpuscular Hemoglobin 30.3 pg (26-34); Mean Corpuscular Volume 90.4 fl (80-100); Mean Platelet Volume 8.2 fl (7.4-10.4); Monocytes Absolute Auto 0.4 K/mm3 (0.1-0.6); Monocytes Percent Auto 6.3 % (2.6-8.5); Neutrophils Absolute Auto 3.6 K/mm3 (1.3-6.7); Neutrophils Percent Auto 56.9 % (45.5-73.1); Platelet Count Result 226 k/mm3 (150-375); Red Blood Count 4.99 M/mm3 (4.2-5.4); Red Cell Distribution Width 12.3 % (11.5-14.5); White Blood Count 6.4 K/mm3 (4.5-10.0)
[2023-11-06 17:01] LABS: Iron 100 ug/dL (37-170)
[2023-11-06 17:03] LABS: Anion Gap 6 mmol/L (8-16); Blood Urea Nitrogen 20 mg/dL (7-17); Calcium 9.3 mg/dL (8.4-10.2); Carbon Dioxide 27 mmol/L (22-30); Chloride 105 mmol/L (98-107); Estimated Glomerular Filt Rate > 60; Glucose 97 mg/dL (65-110); Potassium 4.2 mmol/L (3.4-5.0); Sodium 138 mmol/L (137-145)
[2023-11-06 17:16] LABS: Percent Iron Saturation 36 % (20-50)
[2023-11-06 18:06] LABS: Folic Acid > 20.0 ng/mL (2.76->20)
== END 2023-11-06 14:53 | disposition home or self-care (01) ==
LOC: ANHLAB 14:53
PROVIDERS: Visit Provider Internal Medicine Hematology & Oncology
DX: D64.9 Anemia, unspecified (principal)
CPT/HCPCS: 36415; 80048; 82607; 82728; 82746; 83540; 83550; 85025

== ENCOUNTER 2024-04-21 15:12 | Outpatient (CLI) | payer OTHER, SELFPAY ==
--- NOTE | ~2024-04-21 | MM_ITS ---
EXAMINATION: MM screening dwayne BI w brenda HISTORY: Screening TECHNIQUE: Craniocaudal and mediolateral oblique 3-D tomosynthesis images were obtained and synthetic 2-D images were generated. CAD analysis was submitted and interpreted. COMPARISON: No prior mammogram is available for comparison at this institution. BREAST PARENCHYMAL COMPOSITION: The breasts are almost entirely fatty. FINDINGS: There is no evidence of suspicious mass, calcification, or architectural distortion to sugg est malignancy in either breast. There has been no suspicious interval change. IMPRESSION: 1. No mammographic evidence of malignancy. 2. Recommend routine screening mammography in one year. BI-RADS Category 1: Negative Reviewed, dictated and finalized at location A.
== END 2024-04-21 15:13 ==
DX: Z12.31 Encounter for screening mammogram for malignant neoplasm of breast (principal)
CPT/HCPCS: 77063; 77067

== ENCOUNTER 2024-05-19 11:04 | Outpatient (CLI) | payer OTHER, SELFPAY ==
[2024-05-19 11:23] LABS: Basophils Absolute Auto 0.1 K/mm3 (0.0-0.1); Basophils Percent Auto 0.7 % (0.2-1.2); Eosinophils Absolute Auto 0.1 K/mm3 (0-0.3); Eosinophils Percent Auto 1.7 % (0-4.4); Hematocrit 45.8 % (37.0-47.0); Hemoglobin 15.2 g/dL (12.0-15.0); Immature Granulocyte Absolute 0.01 K/mm3 (0.00-0.031); Immature Granulocyte Percent A 0.1 % (0-0.5); Lymphocytes Absolute Auto 1.61 K/mm3 (0.9-3.2); Lymphocytes Percent Auto 22.6 % (18.3-44.2); Mean Corpuscular HGB Conc 33.2 g/dl (32-36); Mean Corpuscular Hemoglobin 30.1 pg (26-34); Mean Corpuscular Volume 90.7 fl (80-100); Mean Platelet Volume 8.9 fl (7.4-10.4); Monocytes Absolute Auto 0.4 K/mm3 (0.1-0.6); Monocytes Percent Auto 5.8 % (2.6-8.5); Neutrophils Absolute Auto 4.9 K/mm3 (1.3-6.7); Neutrophils Percent Auto 69.1 % (45.5-73.1); Platelet Count Result 229 k/mm3 (150-375); Red Blood Count 5.05 M/mm3 (4.2-5.4); Red Cell Distribution Width 12.3 % (11.5-14.5); White Blood Count 7.1 K/mm3 (4.5-10.0)
[2024-05-19 12:44] LABS: Anion Gap 6 mmol/L (4-12); Blood Urea Nitrogen 28 mg/dL (7-17); Calcium 9.3 mg/dL (8.4-10.2); Carbon Dioxide 28 mmol/L (22-30); Chloride 107 mmol/L (98-107); Estimated Glomerular Filt Rate > 60; Glucose 100 mg/dL (65-110); Potassium 4.1 mmol/L (3.4-5.0); Sodium 141 mmol/L (137-145)
[2024-05-19 12:45] LABS: Iron 113 ug/dL (37-170)
[2024-05-19 12:56] LABS: Percent Iron Saturation 39 % (20-50)
[2024-05-19 13:55] LABS: Folic Acid > 20.0 ng/mL (2.76->20)
== END 2024-05-19 11:05 | disposition home or self-care (01) ==
LOC: ANHLAB 11:05
PROVIDERS: Visit Provider Internal Medicine Hematology & Oncology
DX: D64.9 Anemia, unspecified (principal)
CPT/HCPCS: 36415; 80048; 82607; 82728; 82746; 83540; 83550; 85025

== ENCOUNTER 2024-11-11 13:36 | Outpatient (CLI) | payer OTHER, SELFPAY ==
--- OUTSIDE RECORDS SUMMARY | 2024-11-11 13:40 | XMS_ITS | Continuity of Care Document ---
Author Name [facility] Organization [facility] Care Team Providers Care Carpenter General Name Role Phone [facility] Unavailable Unavailable Problems Combined list of problems from Department of Defense and Veterans Affairs facilities. It does not include entries that were removed or entered in error. Problem Status Onset Date Problem Type Date of Resolution Comments Source OA - Osteoarthritis Active 09/20/20 24 Diagnosis [facility] BMI 30+ - obesity Active 09/20/20 24 Diagnosis [facility] ganglion right wrist Inactive 07/24/20 10 Condition DoD visit for: administrative purpose Inactive 07/17/20 10 Condition DoD ganglion Active Condition DoD depression Active Condition with anxi ety. Will treat with wellbutrin as the pt also wants to quit smoking. f/u in a mo. DoD BMI 30+ - obesity Active Condition Ambu latory Pharmacy Depressive disorder1 Active Condition Outside Source Comment: with anxiety. Will treat with wellbutrin as the pt also wants to quit smoking. f/u in a mo. Ambulatory Pharmacy Ganglion cyst Active Condition Ambulato ry Pharmacy OA - Osteoarthritis Active Condition Ambulatory Pharmacy Pulmonary embolism Active Condition Ambulatory Pharmacy Medications Combined list of outpatient medications from Department of Defense and Veterans Affairs facilities.Medications provided include 1) outpatient medications from the last 15 months, and 2) patient-reported medications. Medication Details Route Status Patient Instructions Prescription Expires Prescription Number Last Dispense Date Ordering Provider Order Date Order Qty Source cholecalcif nicola 25 mcg (1000 intl units) oral capsule 1 cap(s), Oral, Daily, # 90 cap(s), 0 total refill(s ), Maintena nce Oral (given by mouth) Ordered 90.0 [facility] [place] diclofenac 1% topical gel USE DOSING CARD TO APPLY 2 TO 4 GRAMS TO AFFECTED AREAS FOUR TIMES A DAY DIRECTED , # 300 g, 3 total refill(s ), Acute Complet ed 12/08/2023 300.0 Ambulat ory Pharmac y DULoxetine 30 mg oral delayed release capsule 1 cap(s), Oral, Daily, do not crush or chew, # 90 cap(s), 3 total refill(s ), Maintena nce, 1 cap(s) Oral Daily,In str:do not crush or chew, Pharmacy : [facility] Oral (given by mouth) Ordered 90.0 [facility] DULoxetine 30 mg oral delayed release capsule 1 cap(s), Oral, Daily, do not crush or chew, # 90 cap(s), 3 total refill(s ), Maintena nce, 1 cap(s) Oral Daily,In str:do not crush or chew, Pharmacy : [facility] Oral (given by mouth) Discont inued 12/29/2023 90.0 [facility] [place] DULOXETINE HCL (duloxetine HCl), 30 MG, CAPSULE DR, ORAL, [employer] 90 ea. BOTTLE Cancele d [id number] : 2023 0 Pharmac y Data Transac tion Service Facilit y DULOXETINE HCL (duloxetine HCl), 30 MG, CAPSULE DR, ORAL, [employer] 90 ea. BOTTLE Active [id number] 4 2023 90 Pharmac y Data Transac tion Service Facilit y DULOXETINE HCL (duloxetine HCl), 30 MG, CAPSULE DR, ORAL, [employer] 90 ea. BOTTLE Active [id number] 4 2023 90 Pharmac y Data Transac tion Service Facilit y ELIQUIS (APIXABAN), 2.5 MG, TABLET, ORAL, [facility] , 60 ea. BOTTLE Active [id number] 4 2023 180 Pharmac y Data Transac tion Service Facilit y ELIQUIS (APIXABAN), 2.5 MG, TABLET, ORAL, [facility] , 60 ea. BOTTLE Active [id number] 4 2023 180 Pharmac y Data Transac tion Service Facilit y Eliquis 5 mg oral tablet 1 tab(s), Oral, BID, # 180 tab(s), 3 total refill(s ), Maintena nce Oral (given by mouth) Ordered 180.0 0055C-[address] [place] [address] [place] ferrous sulfate 325 mg (65 mg elemental iron) oral delayed release tablet 1 tab(s), Oral, Daily, # 90 tab(s), 0 total refill(s ), Maintena nce Oral (given by mouth) Ordered 90.0 [facility]55[facility]-3 [facility] Lidoderm 5% topical film 1 patch(es ), Topical, Daily, Leave on for up to 12 hours within a 24 hour period (12 hours on, 12 hours off), # 30 patch(es ), 3 total refill(s ), Maintena nce Topica l (on the skin) Ordered 30.0 0055C-[address] [place] [address] [place] phentermine 37.5 mg oral tablet 1 tab(s), Oral, Daily, # 90 tab(s), 0 total refill(s ), Maintena nce, 1 tab(s) Oral Daily, Pharmacy : [facility] Oral (given by mouth) Discont inued 09/23/2024 90.0 0055C-[address] [place], [place] [address] semaglutide (Wegovy) 0.25 mg/0.5 mL (0.25 mg dose) inj-pen 0.25 mg, SubCutan eous, every week, for weight manageme nt in the abdomen, thigh, or upper arm Start with the 0.25mg dose for 4 weeks then increase to 0.5mg., # 2 mL, 0 total refill(s ), Maintena nce, pen needles not needed, integrat ed into device; Start with the 0.25mg dose for 4 weeks then increase to 0.5mg., 0.25 mg SubCutan eous every week,Ins tr:for weight manageme nt; in the abdomen, thigh, or upper arm; Start with the 0.25mg dose for 4 weeks then increase to 0.5mg., Pharmacy : [facility] SubCut aneous (under the skin) Discont inued 09/27/2024 2.0 0055C-[address] [place], [place] [address] semaglutide (Wegovy) 0.25 mg/0.5 mL (0.25 mg dose) inj-pen 0.25 mg, SubCutan eous, every week, for weight manageme nt in the abdomen, thigh, or upper arm Start with the 0.25mg dose for 4 weeks then increase to 0.5mg., # 2 mL, 0 total refill(s ), Maintena nce, pen needles not needed, integrat ed into device; Start with the 0.25mg dose for 4 weeks then increase to 0.5mg., 0.25 mg SubCutan eous every week,Ins tr:for weight manageme nt; in the abdomen, thigh, or upper arm; Start with the 0.25mg dose for 4 weeks then increase to 0.5mg., Pharmacy : [facility] SubCut aneous (under the skin) Ordered 2.0 [facility] semaglutide (Wegovy) 0.5 mg/0.5 mL (0.5 mg dose) inj-pen 0.5 mg, SubCutan eous, every week, for weight manageme nt in the abdomen, thigh, or upper arm Start with the 0.25mg dose for 4 weeks then increase to 0.5mg., # 2 mL, 0 total refill(s ), Maintena nce, pen needles not needed, integrat ed into device; Start with the 0.25mg dose for 4 weeks then increase to 0.5mg., 0.5 mg SubCutan eous every week,Ins tr:for weight manageme nt; in the abdomen, thigh, or upper arm; Start with the 0.25mg dose for 4 weeks then increase to 0.5mg., Pharmacy : [facility] SubCut aneous (under the skin) Discont inued 09/27/2024 2.0 [facility] semaglutide (Wegovy) 0.5 mg/0.5 mL (0.5 mg dose) inj-pen 0.5 mg, SubCutan eous, every week, for weight manageme nt in the abdomen, thigh, or upper arm Start with the 0.25mg dose for 4 weeks then increase to 0.5mg., # 2 mL, 0 total refill(s ), Maintena nce, pen needles not needed, integrat ed into device; Start with the 0.25mg dose for 4 weeks then increase to 0.5mg., 0.5 mg SubCutan eous every week,Ins tr:for weight manageme nt; in the abdomen, thigh, or upper arm; Start with the 0.25mg dose for 4 weeks then increase to 0.5mg., Pharmacy : [facility] SubCut aneous (under the skin) Ordered 2.0 0055C-3 [facility] tirzepatide (Zepbound) Pen 2.5 mg/0.5 mL subcutaneou s solution 2.5 mg, SubCutan eous, every week, for weight manageme nt rotate injectio n sites start with 2.5mg dose, increase to 5mg after 4 weeks., # 2 mL, 0 total refill(s ), Maintena nce, pen needles not needed, integrat ed into device, 2.5 mg SubCutan eous every week,Ins tr:for weight manageme nt; rotate injectio n sites; start with 2.5mg dose, increase to 5mg after 4 weeks., Pharmacy : [facility] SubCut aneous (under the skin) Ordered 2.0 0055C-3 [facility] tirzepatide (Zepbound) Pen 5 mg/0.5 mL subcutaneou s solution 5 mg, SubCutan eous, every week, for weight manageme nt start with 2.5mg dose, increase to 5mg after 4 weeks., # 2 mL, 0 total refill(s ), Maintena nce, pen needles not needed, integrat ed into device, 5 mg SubCutan eous every week,Ins tr:for weight manageme nt; start with 2.5mg dose, increase to 5mg after 4 weeks., Pharmacy : [facility] SubCut aneous (under the skin) Ordered 2.0 0055C-3 [facility] Allergies, Adverse Reactions, Alerts Combined list of allergies from Department of Defense and Veterans Affairs facilities. It does not include entries that were removed or entered in error. Substance Category Reaction Severity Reaction type Status Date Reported Comments Source No Known Allergies Drug allergy (disorder) active 04/04/2008 [facility] [place] [facility] ([facility]) Immunizations Combined list of available immunizations from the Department of Defense and Veterans Affairs facilities. Immunization Series Date Given Administered By Site Reaction Lot Number CVX Code Drug Manufacturing Maintenance Manager Status Comments Source COVID Vaccine Moderna 2020 207 complet ed COVID Vaccine Moderna 09/13/21 Given Ambulat ory Pharmac y COVID-19, mRNA, LNP-S, PF, 100 mcg or 50 mcg dose 2020 COCHRAN, Moderna [employer] (MOD) Not Given COVID-19, mRNA, LNP-S, PF, 100 mcg or 50 mcg dose DoD COVID Vaccine Moderna 2020 207 complet ed COVID Vaccine Moderna 08/16/21 Given Ambulat ory Pharmac y COVID-19, mRNA, LNP-S, PF, 100 mcg or 50 mcg dose 2020 COCHRAN, [place] [employer] (MOD) Not Given COVID-19, mRNA, LNP-S, PF, 100 mcg or 50 mcg dose DoD Tdap 2020 ALUL, () Not Given Tdap DoD Results Combined list of recent chemistry, hematology and other laboratory results from Department of Defense and Veterans Affairs, ranging from 15 months to all on record, depending upon the facility. Order Name Results Value Reference Range Date Interpretation Specimen Comments Source Chemistr y Triglyceri inés 185 mg/dL 7 - 149 12/29 H Interpretiv e Data: AGES 0-9: Desirable: < 75 mg/dL Borderline High: 75-99 mg/dL High: >/= 100 mg/dL AGES 10-19: Desirable: < 90 mg/dL Borderline High: 90-129 mg/dL High: >/= 130 mg/dL ADULTS: Desirable: < 150 mg/dL Borderline High: 150-199 mg/dL High: >/= 240 mg/dL Very High: >/= 500 mg/dL Amb[facility] Pharm[facility] Chemistr y LDL/HDL 2 12/29 [facility] Chemistr y LDL 119 mg/dL 100 - 130 12/29 N Interpretiv e Data: AGES 0-19: Desirable: < 110 mg/dL Borderline High: 110-129 mg/dL High: >/= 130 mg/dL ADULTS: Desirable: <100 mg/dL Near/above optimal: 100-130 mg/dL Borderline High: 131-159 mg/dL High: 160-189 mg/dL Very High: e190 mg/dL [facility] Chemistr y HDL Cholestero l 51 mg/dL 40 - 59 12/29 N Interpretiv e Data: HDL (HIGH DENSITY LIPOPROTEIN ): ADULTS: Low: < 40 mg/dL High: >/= 60 mg/dL AGES 0 -19: Low: < 40 mg/dL Borderline Low: 40 - 45 mg/dL Acceptable: > 45 mg/dL [facility] Chemistr y Cholestero l Total 193 mg/dL 12/29 N Interpretiv e Data: According to the [place] [employer] : AGES 0-19: Desirable: < 170 mg/dL Borderline High: 170-199 mg/dL High Blood Cholesterol : >/= 200 mg/dL ADULTS: Desirable < 200 mg/dL Borderline High: 200-239 mg/dL High Blood Cholesterol : >/= 240 mg/dL [facility] Chemistr y Chol/HDL 4 mg/dL 12/29 [facility] Chemistr y Phosphorus 3.7 mg/dL 2.3 - 4.7 12/29 N [facility] Pharmacy Chemistr y Sodium 141 mmol/L 136 - 145 12/29 N [facility] Pharm[facility] Chemistr y Potassium Lvl 4.0 mmol/L 3.5 - 5.1 12/29 N Amb[facility] y Pharmacy Chemistr y Glucose Lvl 100 mg/dL 74 - 99 12/29 H [facility] Pharm[facility] Chemistr y Creatinine Level 0.60 mg/dL 0.57 - 1.11 12/29 N [facility] Pharm[facility] Chemistr y CO2 23 mmol/L - 12/29 N [facility] Pharm[facility] Chemistr y Chloride 109 mmol/L 98 - 107 12/29 H [facility] Pharm[facility] Chemistr y Calcium 9.3 mg/dL 8.4 - 10.2 12/29 N [facility] Pharmacy Chemistr y BUN/Creat Ratio 47 mg/dL 12 - 20 12/29 H [facility] Chemistr y BUN 28 mg/dL 7 - 20 12/29 H [facility] Chemistr y Albumin 3.50 g/dL 3.50 - 5.20 12/29 N [facility] Pharmacy Chemistr y AGAP 9.00 0.00 - 15.00 12/29 N [facility] Pharmacy Chemistr y Hemoglobin A1c 5.0 % 4.0 - 5.6 12/29 N Interpretiv e Data: Normal: 4.0 - 5.6% Increased Risk: 5.7 - 6.4% Diabetic Range: e 6.5% For patients without diabetes, the normal range for the hemoglobin A1c test is between 4% and 5.6%. Hemoglobin A1c levels between 5.7% and 6.4% indicate increased risk of diabetes, and levels of 6.5% or higher indicate diabetes. Because studies have repeatedly shown that out-of-cont rol diabetes results in complicatio ns from the disease, the goal for people with diabetes is a hemoglobin A1c less than 7%. The higher the hemoglobin A1c, the higher the risks of developing complicatio ns related to diabetes. If confirmatio n is needed, consider recalling the patient and ordering Hemoglobin Electrophor esis. [facility] Chemistr y eAvg Glucose 97 mg/dL 12/29 [facility] Pharm[facility] Chemistr y Ferritin Lvl 453.00 ng/mL 13.00 - 150.00 12/29 H Interpretiv e Data: METHODOLOGY : Testing performed by electrochem iluminGritnesscen t immunoassay (ECLIA). [facility] Immunolo gy/Serol ogy Hep C Ab Negative 3 (12/29/23 4:12 PM) 12/29 N Interpretiv e Data: NEGATIVE - Antibodies to HCV were not detected; does not exclude the possibility of exposure to HCV. PRESUMPTIVE POSITIVE - Presumptive evidence of antibodies to HCV. Follow CDC recommendat ions for supplementa l testing. Refer to updated guidance Testing HCV Infection: An Update of Guidance for Clinicians and Laboratoria ns for additional information and recommended HCV testing algorithm (Centers for Disease Control and Prevention, MMWR Early Release / Vol. 62 / April 06, 2013). Notifiable result/cond ition for Local/State PH department, notify your local public health immediately for proper notificatio n. Testing performed by electrochem iluminescen ce. [facility] Hematolo gy WBC 7.6 x10^3/mc L 4.0 - 11.0103 12/29 N Amb[facility] Pharmacy Hematolo gy RDW 12.1 % 11.0 - 14.9 12/29 N [facility] Pharmacy Hematolo gy RBC 4.9 x10^6/mc L 3.6 - 5.0106 12/29 N [facility] Pharmacy Hematolo gy Platelets 235.0 x10^3/mc L 150.0 - 450.0103 12/29 N [facility] Pharmacy Hematolo gy MPV 8.5 fL 7.4 - 10.4 12/29 N [facility] Pharmacy Hematolo gy MCV 90 fL 80 - 97 12/29 N [facility] Pharmacy Hematolo gy MCHC 33.5 g/dL 33.0 - 36.5 12/29 N [facility] Pharmacy Hematolo gy MCH 30 pg 28 - 33 12/29 N [facility] Pharmacy Hematolo gy Hemoglobin 14.7 g/dL 11.0 - 15.0 12/29 N [facility] Pharmacy Hematolo gy Hematocrit 44 % 34 - 46 12/29 N [facility] Pharmacy Chemistr y UIBC, 215.0 ug/dL 112.0 - 347.0 12/29 N Amb[facility] Pharmacy Chemistr y Transferri n Sat 23 % 14 - 50 12/29 N Amb[facility] Pharmacy Chemistr y TIBC 278 ug/dL 250 - 400 12/29 N [facility] Pharmacy Chemistr y Iron 63 ug/dL 37 - 145 12/29 N Interpretiv e Data: METHODOLOGY : Testing performed by colorimetri c assay. [facility] Pharmacy Chemistr y eGFR CKD EPI 105 mL/min/1 .73_m2 12/29 Interpretiv e Data: Estimated Glomerular Filtration Rate (eGFR) calculated using the 2020 Chronic Kidney Disease-Epi demiology (CKD-EPI) Collaborati on creatinine equation; units of measure are mL/min/1.73 m2. Results are only valid for adults (>=18 years) whose serum creatinine is in steady state. eGFR calculation s are not valid for patients with acute kidney injury and for patients on dialysis. Creatinine- based estimates of kidney function may also be inaccurate in patients with reduced creatinine generation due to decreased muscle mass (e.g., malnutritio n, severe hypoalbumin emia, sarcopenia, chronic neuromuscul ar disease, amputations , severe heart failure or liver disease) and in patients with increased creatinine generation due to increased muscle mass (e.g., muscle builders, anabolic steroids) or increased dietary intake. CKD is diagnosed based on abnormaliti es of kidney structure or function, present for >3 months, with implication s for health and disease. CKD is classified and staged based on cause, eGFR and albuminuria (quantified as urine albumin to creatinine ratio). An eGFR >60 mL/min/1.73 m2 in the absence of increased urine albumin excretion or structural abnormaliti es does not CKD. eGFR provides only an estimate of measured GFR within +/- 30% for most patients. As mentioned, nutritional status and muscle mass, among many factors, may lead to inaccuracy in the estimate. Consider ordering the creatinine- cystatin C panel if better accuracy is needed for clinical decision-sana sanchez. eGFR (mL/min/1.7 3 m2) CKD stage Interpretat ion Normal 60-89 Mild decrease 45-59 Mild to moderate decrease 30-44 Moderate to severe decrease 15-29 Severe decrease <15 Kidney failure [facility] Hematolo gy Neutrophil % Auto 66.6 % 46.0 - 77.0 12/29 N [facility] Pharm[facility] Hematolo gy Neutro Absolute 5.0 x10^3/mc L 2.0 - 7.0103 12/29 N [facility] Hematolo gy Monocyte % Auto 6 % 1 - 12 12/29 N [facility] Hematolo gy [place] Absolute 0.4 x10^3/mc L 0.2 - 0.8103 12/29 N [facility] Pharmacy Hematolo gy Lymph Absolute 1.9 x10^3/mc L 1.2 - 4.0103 12/29 N [facility] Pharmacy Hematolo gy Lymphocyte % Auto 25.5 % 20.0 - 40.0 12/29 N [facility] Pharm[facility] Hematolo gy Eosinophil % Auto 2 % 0 - 5 12/29 N [facility] Pharm[facility] Hematolo gy Eos Absolute 0.1 x10^3/mc L 0.0 - 0.7103 12/29 N [facility] Pharm[facility] Hematolo gy Basophil % Auto 0.3 % 0.0 - 2.5 12/29 N [facility] Pharm[facility] Hematolo gy Baso Absolute 0.0 x10^3/mc L 0.0 - 0.1103 12/29 N [facility] Vital Signs Combined list of inpatient and outpatient Vital Signs from Department of Defense and Veterans Affairs, ranging from 12 months to all on record, depending upon the facility. Vital Sign Value Date Comments Source Systolic Blood Pressure 102mm[Hg] 05/28/2024 13:11:00 Ambulatory Pharmacy Diastolic Blood Pressure 70mm[Hg] 05/28/2024 13:11:00 Ambulatory Pharmacy Mean Arterial Pressure, Calc 81mm[Hg] 05/28/2024 13:11:00 Ambulatory P harmacy Peripheral Pulse Rate 82bpm 05/28/2024 13:11:00 Ambulatory Pharmacy Systolic Blood Pressure 134mm[Hg] 01/15/2024 20:56:00 Ambulatory Pharmacy Diastolic Blood Pressure 76mm[Hg] 01/15/2024 20:56:00 Ambulatory Pharmacy Mean Arterial Pressure, Calc 95mm[Hg] 01/15/2024 20:56:00 Ambulatory P harmacy Peripheral Pulse Rate 86bpm 01/15/2024 20:56:00 Ambulatory Pharmacy Respiratory Rate 18br/min 01/15/2024 20:56:00 Ambulatory Pharmacy Temperature Oral 36.4Cel 01/15/2024 20:56:00 Ambulatory Pharmacy BP Site 01/15/2024 20:56:00 [facility]ul [facility] Pharmacy Blood Pressure Manual 01/15/2024 20:56:00 Ambulatory Pharmacy Systolic Blood Pressure 136mm[Hg] 12/29/2023 21:12:00 Ambulatory Pharmacy Diastolic Blood Pressure 78mm[Hg] 12/29/2023 21:12:00 Ambulatory Pharmacy Mean Arterial Pressure, Calc 97mm[Hg] 12/29/2023 21:12:00 Ambulatory P harmacy Peripheral Pulse Rate 78bpm 12/29/2023 21:12:00 Ambulatory Pharmacy Respiratory Rate 20br/min 12/29/2023 21:12:00 Ambulatory Pharmacy Temperature Oral 36.6Cel 12/29/2023 21:12:00 Ambulatory Pharmacy BP Site 12/29/2023 21:12:00 [facility]ul [facility] Pharmacy Blood Pressure Manual 12/29/2023 21:12:00 Ambulatory Pharmacy Encounters Combined list of: 1) Encounters from Department of Veterans Affairs facilities going back up to thelast 18 months. 2) Encounters from the Department of Defense facilities going back up to 280 months. Location Location Details Encounter Type Encounter Number Reason For Visit Attending Provider ADM Date DC Date Status Disposition Source [address] [place] [address] [place] [facility] ([facility]co [facility] Tm [place] OUTPATIENT [id number] right wrist pain JUVE VEENA Harpal E 02/12 Released w/o Limitations [address] [place] [address] [place] [facility] ([facility]S cott [facility] Tm Blue) [address] [place] [address] [place] [facility]) OUTPATIENT [id number] GANGLIO N VEENA FARIAS R M 03/12 Released w/o Limitations [address] [place] [address] [place] [facility] ([facility]V A - Orthope dics) [address] [place] [address] [place] [facility]co [place] [facility] [place]) OUTPATIENT [id number] INITIAL EVAL FOR REMOVAL OF GANGLIO N CYSTO NRT.RENE MIRAMONTES 04/04 Released w/o Limitations [address] [place] [address] [place] [facility] ([facility]S cott [facility] [place] [address] [place] [address] [place] [facility] ([facility]Sco tt [facility] [place]) TELE CONSULT [id number] Needs routine appt for cyst on wrist and depress ion - [phone]/531-5 517 CAD [facility] RON SCHULER G 07/17 Referred for Appointment [address] [place] [address] [place] [facility] ([facility]S cott [facility] [place]) [address] [place] [address] [place] [facility]Sco tt [facility] F[facility] [place]) OUTPATIENT [id number] cyst right wrist/d epressi on SHEILA ROBLES 07/24 Released w/o Limitations [address] [place] [address] [place] [facility]S cott [facility] F[facility] [place]) [address] [place] [address] [place] [facility]co tt [facility] F[facility] Res [place]) OUTPATIENT [id number] f/u depress ion MARGARET SHEILA G 08/10 Released w/o Limitations [address] [place] [address] [place] [facility] ([facility]S cott [facility] Fam Res [place]) [address] [place] [address] [place] [facility]Sco tt [facility] F[facility] [place]) TELE CONSULT [id number] rqst med refill/ maddie-c ad/tnp VALENTE MAI 10/[address] [place] [address] [place] [facility] Fam Res [place]) [address] [place] [address])([facility] Res Green) OUTPATIENT [id number] f/u med refill [phone] VALENTE MAI 11/02 Released w/o Limitations [address] [place] [address])([facility] Res Tm [place]) [address] [place] [address])([facility] Internal Medicine ) TELE CONSULT [id number] 5 Notes Entered by: Jasmeet SADLER 05 Dec 2020 1556 ------- ------- ------- ------- -- Inpatie nt Notific atnile LARKINCHRIS 12/[address] [place] [address])( cott Interna l Medicin e Tm) [address] [place] [address])([facility] Internal Medicine ) TELE CONSULT [id number] 3 Notes Entered by: ADAM HAIRSTON 19 Dec 2020 0937 ------- ------- ------- ------- -- [employer] Daily Inpatie nt Roster- Admissi on Notific JOHN FranklinKenton 12/[address] [place] [address])( cott Interna l Medicin e Tm) [address] [place] [address])([facility] Internal Medicine ) TELE CONSULT [id number] 3 Notes Entered by: WESLY HENDRICKSON 22 Feb 2021 1032 ------- ------- ------- ------- -- Sx: Cough, vomitin g - STAT referra l & Retro referra l - [facility] s - * HOMER SANTOYO 02/22 Referred- Emergency Department [address] [place] [address])(S cott Interna l Medicin e Tm) [address] [place] [address])([facility] Internal Medicine ) TELE CONSULT [id number] 3 Notes Entered by: PATTI PABLO 26 Feb 2021 1548 ------- ------- ------- ------- -- Transpo rtation HOMER Head 02/26 Other Not Elsewhere Classified [address] [place] [address])(S cott Interna l Medicin e Tm) [address] [place] [address])(Uti lization Managemen t) TELE CONSULT [id number] 7 Notes Entered by: Jasmeet SADLER 28 Feb 2021 1144 ------- ------- ------- ------- -- UM Status LESLIE SADLER 02/[address] [place] [address] [facility])(U tilizat ion Managem ent) [address] [place] [address])(Sco tt Disease Managemen t) TELE CONSULT [id number] 5 Notes Entered by: GIANNI WILKINSON 02 Mar 2021 1114 ------- ------- ------- ------- -- Danyelle ching ADINA MONTALVO 03/02 Other Not Elsewhere Classified [address] [place] [address])(S cott Disease Managem ent) [address] [place] [address])(Sco tt Internal Medicine Tm) TELE CONSULT [id number] 6 Notes Entered by: PATTI PABLO 05 Mar 2021 0757 ------- ------- ------- ------- -- Medical equipme HOMER Scanlon 03/05 Other Not Elsewhere Classified [facility] Medical [facility])(S cott Interna l Medicin e Tm) [address] [place] [address])(Deo tt Internal Medicine Tm) TELE CONSULT [id number] 3 Notes Entered by: JUANJO DAVIES 05 Mar 2021 0850 ------- ------- ------- ------- -- NET WORK RESULTS - HOME HEALTH [id number] CHRIS WARNER 03/[address] [place] [address] [facility])(S cott Interna l Medicin e Tm) [address] [place] [address] [facility])([facility] Internal Medicine ) OUTPATIENT [id number] 3 Virtual annual and f/u d/c from [facility] CHRIS LARKIN 03/05 Released w/o Limitations [address] [place] [address] [facility])(S cott Interna l Medicin e Tm) [address] [place] [address] [facility])(Car e Coordinat [facility]) TELE CONSULT [id number] 4 Notes Entered by: LEONORA ROWELL 05 Mar 2021 1539 ------- ------- ------- ------- -- CM consult review LEI ROWELL 03/[address] [place] [address] [facility])([facility] [address] [place] [address] [facility])([facility] Internal Medicine ) TELE CONSULT [id number] Notes Entered by: Jasmeet SADLER 08 Mar 2021 1019 ------- ------- ------- ------- -- NAL Encount er/Diff iculty Breathi tremaine/Anid oliva/ [phone] CHRIS LARKIN 03/[address] [place] [address] [facility])(S cott Interna l Medicin e Tm) [address] [place] [address] [facility])([facility] Internal Medicine ) TELE CONSULT [id number] 3 Notes Entered by: Kenton YOUSSEF 12 Mar 2021 1601 ------- ------- ------- ------- -- [facility] request ing PT & OT /HOMER Reyes 03/12 Other Not Elsewhere Classified [address] [place] [address] [facility])(S cott Interna l Medicin e Tm) [address] [place] [address] [facility])(Jaycob e Managemen t) TELE CONSULT [id number] 7 Notes Entered by: LEONORA ROWELL 14 Mar 2021 0855 ------- ------- ------- ------- -- CM consult LEI ROWELL 03/[address] [place] [address])(C ase Managem ent) [address] [place] [address])(Jaycob e Managemen t) TELE CONSULT [id number] 1 Notes Entered by: LEONORA ROWELL 15 Mar 2021 0845 ------- ------- ------- ------- -- CM f/u LEI ROWELL 03/[address] [place] [address])(C ase Managem ent) [address] [place] [address])(Deo tt Internal Medicine Tm) TELE CONSULT [id number] 9 Notes Entered by: LAURA MASTERS 19 Mar 2021 1048 ------- ------- ------- ------- -- RX refill/ Chamber s/ [phone] HOMER Yi 03/19 Medication Refill Forwarded [address] [place] [address])(S cott Interna l Medicin e Tm) [address] [place] [address])(Jaycob e Managemen t) TELE CONSULT [id number] 3 Notes Entered by: LEONORA ROWELL 19 Mar 2021 1417 ------- ------- ------- ------- -- CM f/u LEI ROWELL 03/[address] [place] [address])(C ase Managem ent) [address] [place] [address])(Deo tt Internal Medicine Tm) TELE CONSULT [id number] Notes Entered by: Kenton YOUSSEF 20 Mar 2021 1414 ------- ------- ------- ------- -- med refill x 2 /gwp IDANIA GARCIA 03/20 Other Not Elsewhere Classified [address] [place] [address])(S cott Interna l Medicin e Tm) [address] [place] [address])(Jaycob e Rebeccamen t) TELE CONSULT [id number] 1 Notes Entered by: LEONORA ROWELL 20 Mar 2021 1421 ------- ------- ------- ------- -- CM f/u LEI ROWELL 03/[address] [place] [address])(C ase Manage ent) [address] [place] [address])([facility] Internal Medicine ) TELE CONSULT [id number] 5 Notes Entered by: Kenton YOUSSEF 22 Mar 2021 1353 ------- ------- ------- ------- -- Home health nurse INR report High /JOHN Whitney 03/[address] [place] [address])(S cott Interna l Medicin e Tm) [address] [place] [address])([facility] Internal Medicine ) TELE CONSULT [id number] 5 Notes Entered by: LAURA MASTERS 23 Mar 2021 1111 ------- ------- ------- ------- -- Hosp. Update/ Alfred s/ [phone] HOMER SANTOYO 03/23 Other Not Elsewhere Classified [address] [place] [address])(S cott Interna l Medicin e Tm) [address] [place] [address])([facility] Internal Medicine ) TELE CONSULT [id number] 0 Notes Entered by: LAURA MASTERS 26 Mar 2021 0656 ------- ------- ------- ------- -- SX Surgery / 'augustine Note Request / Alfred s/SURGE RY SCHED TODAY/ - Spopt HOMER SANTOYO 03/26 Other Not Elsewhere Classified [address] [place] [address])(S cott Interna l Medicin e Tm) [address] [place] [address])(Jaycob e Managemen t) TELE CONSULT [id number] 1 Notes Entered by: LEONORA ROWELL 27 Mar 2021 0813 ------- ------- ------- ------- -- CM f/u LEI ROWELL 03/[address] [place] [address])(C ase Managem ent) [address] [place] [address])(Jaycob e Managemen t) TELE CONSULT [id number] 1 Notes Entered by: LEONORA ROWELL 29 Mar 2021 0835 ------- ------- ------- ------- -- CM f/u LEI ROWELL 03/[address] [place] [address])(C ase Managem ent) [address] [place] [address])(Sco tt Internal Medicine Tm) TELE CONSULT [id number] 2 Notes Entered by: Kenton YOUSSEF 29 Mar 2021 0859 ------- ------- ------- ------- -- MCT form for the pt to Ride on special transpo rt/gwp HOMER SANTOYO 03/29 Other Not Elsewhere Classified [address] [place] [address])(S cott Interna l Medicin e Tm) [address] [place] [address])(Sco tt Internal Medicine Tm) TELE CONSULT [id number] Notes Entered by: ADAM HAIRSTON 02 Apr 2021 0836 ------- ------- ------- ------- -- Humana Militar y A & D roster- Admissi on CHRIS Salinas 04/[address] [place] [address])(S cott Interna l Medicin e Tm) [address] [place] [address])(Jaycob e Managemen t) TELE CONSULT [id number] 2 Notes Entered by: LEONORA ROWELL 02 Apr 2021 1026 ------- ------- ------- ------- -- CM f/u LEI ROWELL 04/02 [facility] Medical [facility])(C ase Managem ent) [address] [place] [address])([facility] Internal Medicine ) TELE CONSULT [id number] 0 Notes Entered by: KRISTIN WALTERS 03 Apr 2021 145 ------- ------- ------- ------- -- Network results Gastroe nterolo gy 021 CHRIS GARCIA 04/[address] [place] [address] [facility])(S cott Interna l Medicin e Tm) [address] [place] [address])(Jaycob e Managemen t) TELE CONSULT [id number] 6 Notes Entered by: LEONORA ROWELL 05 Apr 2021 145 ------- ------- ------- ------- -- CM f/u LEI ROWELL 04/05 [facility] Medical [facility])(C ase Managem ent) [address] [place] [address])([facility] Internal Medicine ) TELE CONSULT [id number] 5 Notes Entered by: ADAM HAIRSTON 09 Apr 2021 0917 ------- ------- ------- ------- -- Humana Militar y A & D [facility] CHRIS Mcclellan 04/09 [facility] Medical [facility])(S cott Interna l Medicin e Tm) [address] [place] [address])(Jaycob e Managemen t) TELE CONSULT [id number] 0 Notes Entered by: LEONORA ROWELL 09 Apr 2021 145 ------- ------- ------- ------- -- CM f/u LEI ROWELL 04/09 [facility] Medical [facility])(C ase Managem ent) [address] [place] [address] [facility])(Jaycob e Managemen t) TELE CONSULT [id number] 1 Notes Entered by: LEONORA ROWELL 16 Apr 2021 1256 ------- ------- ------- ------- -- CM f/u LEI ROWELL 04/[address] [place] [address] [facility])(C ase Managem ent) [address] [place] [address])([facility] Internal Medicine ) TELE CONSULT [id number] 2 Notes Entered by: FELISHA RAGLAND RET 16 Apr 2021 1317 ------- ------- ------- ------- -- RX Velia /Jesus /[phone]*[facility] NATALIA NARAYAN 04/16 Medication Refill Forwarded [address] [place] [address])(S cott Interna l Medicin e Tm) [address] [place] [address])(Jaycob e Managemen t) TELE CONSULT [id number] 2 Notes Entered by: LEONORA ROWELL 03 May 2021 1515 ------- ------- ------- ------- -- CM f/u LEI ROWELL 05/[address] [place] [address] [facility])(C ase Managem ent) [address] [place] [address])([facility] Internal Medicine ) TELE CONSULT [id number] 6 Notes Entered by: JEF REAL 11 May 2021 1409 ------- ------- ------- ------- -- STAT May- 0 Referra l Req- Hosp F/U/ [facility] s/ POC- Mitali -ajh NATALIA NARAYAN 05/11 Advice Assessment [address] [place] [address])(S cott Interna l Medicin e Tm) [address] [place] [address])([facility] Internal Medicine ) TELE CONSULT [id number] Faxed Pharmac y Request :Med refill HOMER SANTOYO 05/21 Medication Refill Forwarded [address] [place] [address])(S cott Interna l Medicin e Tm) [address] [place] [address])(Jaycob e Managemen t) TELE CONSULT [id number] 3 CM f/u LEI ROWELL 05/[address] [place] [address])(C ase Managem ent) [address] [place] [address])([facility] Internal Medicine ) OUTPATIENT [id number] Referra l clementina,[phone] phone call appt CHRIS LARKIN 05/22 Released w/o Limitations [address] [place] [address])(S cott Interna l Medicin e Tm) [address] [place] [address])([facility] Internal Medicine ) TELE CONSULT [id number] Notes Entered by: ADAM HAIRSTON 05 Jun 2021 0843 ------- ------- ------- ------- -- Humana Militar y Daily Inpatie nt Roster- Planned Surgery CHRIS LARKIN 06/[address] [place] [address])(S cott Interna l Medicin e Tm) [address] [place] [address])([facility] Internal Medicine ) TELE CONSULT [id number] Notes Entered by: ADAM HAIRSTON 14 Jun 2021 0929 ------- ------- ------- ------- -- Humana Militar y Daily Inpatie nt Roster- Admissi on Notific ation CHRIS LARKIN 06/[address] [place] [address])(S cott Interna l Medicin e Tm) [address] [place] [address])([facility] Internal Medicine ) TELE CONSULT [id number] 9 Notes Entered by: ADAM HAIRSTON 18 Jun 2021 1031 ------- ------- ------- ------- -- Humana Militar y Daily Inpatie nt Roster- Dischar ge Notific zoltan LARKINCHRIS 06/18 [facility] Group [facility])(S cott Interna l Medicin e Tm) [address] [place] [address] [facility])(Jaycob e Managemen t) TELE CONSULT [id number] 2 Notes Entered by: LEONORA ROWELL 19 Jun 2021 1323 ------- ------- ------- ------- -- CM f/u LEI ROWELL 06/[address] [place] [address] Group [facility])(C ase Managem ent) [address] [place] [address])(Jaycob e Managemen t) TELE CONSULT [id number] 4 CM f/u inquiry from [facility] homecar e LEI Kilpatrick 06/[address] [place] [address] [facility])(C ase Managem ent) [address] [place] [address])(Jaycob e Managemen t) TELE CONSULT [id number] 5 Notes Entered by: LEONORA ROWELL 25 Jun 2021 1242 ------- ------- ------- ------- -- CM f/u LEI ROWELL 06/[address] [place] [address] [facility])(C ase Managem ent) [address] [place] [address])(Sco Internal Medicine ) TELE CONSULT [id number] 7 Notes Entered by: ADAM HAIRSTON 04 Jul 2021 0948 ------- ------- ------- ------- -- Humana Militar y Daily Inpatie nt Roster- Dischar ge Notific zoltan LARKINCHRIS 07/[address] [place] [address] Group [facility])(S cott Interna l Medicin e Tm) [address] [place] [address])(Jaycob e Managemen t) TELE CONSULT [id number] 3 Notes Entered by: LEONORA ROWELL 11 Jul 2021 1429 ------- ------- ------- ------- -- CM f/u LEI ROWELL 07/[address] [place] [address])(C ase Managem ent) [address] [place] [address])(Sco tt Internal Medicine Tm) TELE CONSULT [id number] 4 Notes Entered by: LAURA MASTERS 16 Jul 2021 1149 ------- ------- ------- ------- -- RX Request / Alfred s/ HOMER SANTOYO 07/16 Medication Refill Forwarded [address] [place] [address])(S cott Interna l Medicin e Tm) [address] [place] [address])(Jaycob e Managemen t) TELE CONSULT [id number] 4 Notes Entered by: LEONORA ROWELL 31 Jul 2021 1350 ------- ------- ------- ------- -- CM f/u LEI ROWELL 07/[address] [place] [address])(C ase Managem ent) [address] [place] [address])(Jaycob e Managemen t) TELE CONSULT [id number] 5 Notes Entered by: LEONORA ROWELL 01 Aug 2021 145 ------- ------- ------- ------- -- CM f/u LEI ROWELL 08/[address] [place] [address])(C ase Managem ent) [address] [place] [address])(Jaycob e Managemen t) TELE CONSULT [id number] 7 Notes Entered by: LEONORA ROWELL 21 Aug 2021 1452 ------- ------- ------- ------- -- Cm f/u LEI ROWELL 08/[address] [place] [address])(C ase Managem ent) [address] [place] [address])(Deo tt Internal Medicine Tm) TELE CONSULT [id number] Notes Entered by: KRISTIN WALTERS 22 Aug 2021 1554 ------- ------- ------- ------- -- Network results Hematol ogy/Onc ology 021 CHRIS GARCIA 08/[address] [place] [address])(S cott Interna l Medicin e Tm) [address] [place] [address])(Jaycob e Managemen t) TELE CONSULT [id number] 2 Notes Entered by: LEONORA ROWELL 19 Sep 2021 1559 ------- ------- ------- ------- -- CM f/u LEI ROWELL 09/[address] [place] [address])(C ase Managem ent) [address] [place] [address])(Jaycob e Managemen t) TELE CONSULT [id number] 6 Notes Entered by: LEONORA ROWELL 15 Oct 2021 1407 ------- ------- ------- ------- -- CM f/u LEI ROWELL 10/[address] [place] [address])(C ase Managem ent) [address] [place] [address])([facility] tt Internal Medicine Tm) TELE CONSULT [id number] 3 Notes Entered by: Tasia GRANT 13 Nov 2021 1126 ------- ------- ------- ------- -- Network results Hematol ogy 021 TSCHRIS MOORE 11/[address] [place] [address])(S cott Interna l Medicin e Tm) [address] [place] [address])(Jaycob e Managemen t) TELE CONSULT [id number] Notes Entered by: LEONORA ROWELL 13 Nov 2021 1425 ------- ------- ------- ------- -- CM f/u LEI ROWELL 11/[address] [place] [address])(C ase Managem ent) [address] [place] [address])(Jaycob e Managemen t) TELE CONSULT [id number] Notes Entered by: LEONORA ROWELL 20 Dec 2021 1548 ------- ------- ------- ------- -- CM f/u LEI ROWELL 12/[address] [place] [address])(C ase Managem ent) [address] [place] [address])(Jaycob e Managemen t) TELE CONSULT [id number] 1 Notes Entered by: LEONORA ROWELL 16 Jan 2022 1341 ------- ------- ------- ------- -- CM f/u LEI ROWELL 01/[address] [place] [address])(C ase Managem ent) [address] [place] [address])([facility] Internal Medicine Tm) TELE CONSULT [id number] 9 Notes Entered by: Ammy LANDEROS 18 Feb 2022 1058 ------- ------- ------- ------- -- Network results Hematol ogy/ Oncolog y 022 KJCHRIS WILD 02/[address] [place] [address])(S cott Interna l Medicin e Tm) [address] [place] [address])([facility] Internal Medicine Tm) OUTPATIENT [id number] F2F - Physica l, lump on wrist, CHRIS LARKIN 03/11 Released w/o Limitations [address] [place] [address])(S cott Interna l Medicin e Tm) [address] [place] [address])([facility] Internal Medicine Tm) TELE CONSULT [id number] 3 Notes Entered by: SMITHA PARSONS 03 Apr 2022 1303 ------- ------- ------- ------- -- Imaging results NATALIA NARAYAN 04/03 Other Not Elsewhere Classified [address] [place] [address])(S cott Interna l Medicin e Tm) [address] [place] [address])([facility] Internal Medicine Tm) TELE CONSULT [id number] Notes Entered by: JACQUELYN LEE 12 Apr 2022 1549 ------- ------- ------- ------- -- Initial Referra ro ( Stat Appt: May)/Orestes onofre/ (HOP called ) HOMER SANTOYO 04/12 Other Not Elsewhere Classified [address] [place] [address])(S cott Interna l Medicin e Tm) [address] [place] [address])([facility] Internal Medicine ) TELE CONSULT [id number] 4 Notes Entered by: Bren RODRÍGUEZ 14 May 2022 1618 ------- ------- ------- ------- -- Network results Surgery 022 LAKESHIA PETERSEN 05/[address] [place] [address])(S cott Interna l Medicin e Tm) [address] [place] [address])(Car e Coordinat [facility]) TELE CONSULT [id number] 0 Notes Entered by: LEONORA ROWELL 27 May 2022 1123 ------- ------- ------- ------- -- referLEI Rivero 05/[address] [place] [address])([facility]) [address] [place] [address])([facility] Internal Medicine ) TELE CONSULT [id number] 3 Notes Entered by: LAURA MASTERS 29 May 2022 0844 ------- ------- ------- ------- -- SX R- Wrist/ [facility] s/ [phone]- work HOMER SANTOYO 05/29 Other Not Elsewhere Classified [facility] Group [facility])(S cott Interna l Medicin e Tm) [facility])([facility] Internal Medicine ) TELE CONSULT [id number] 1 Notes Entered by: JEF REAL 07 Jun 2022 1238 ------- ------- ------- ------- -- STAT May R Wrist MRI Referra l Req- Special ist F/U / [facility] s/[facility] [phone] STEFANIE WONG 06/07 Other Not Elsewhere Classified [facility])(S cott Interna l Medicin e Tm) [facility])([facility] Internal Medicine ) TELE CONSULT [id number] Notes Entered by: EMERSON DICKSON 12 Jun 2022 1247 ------- ------- ------- ------- -- Please review provide r results /HAIMS/ orthope LAKESHIA Ro 06/12 [facility])(S cott Interna l Medicin e Tm) [facility])([facility] Internal Medicine ) TELE CONSULT [id number] Notes Entered by: WESLY HENDRICKSON 12 Jun 2022 1345 ------- ------- ------- ------- -- STAT referra l renewal - May [facility] s - POC: Farideh - - [facility] STEFANIE WONG 06/12 Other Not Elsewhere Classified [facility])(S cott Interna l Medicin e Tm) [facility] Medical [facility])([facility] Internal Medicine ) TELE CONSULT [id number] Notes Entered by: WESLY HENDRICKSON 26 Jun 2022 1304 ------- ------- ------- ------- -- Amend referra [facility] POC: Farideh - [phone] - tsg NERY JASON 06/26 Released to Self [facility] [address] [place] [address])(S cott Interna l Medicin e Tm) [address] [place] [address])([facility] Internal Medicine ) TELE CONSULT [id number] 1 Notes Entered by: ELVIE SANCHEZ 11 Jul 2022 0958 ------- ------- ------- ------- -- [facility] Follow up/Angelia marrero/ / STEFANIE WONG 07/11 Other Not Elsewhere Classified [address] [place] [address])(S cott Interna l Medicin e Tm) [address] [place] [address])([facility] Internal Medicine ) TELE CONSULT [id number] Notes Entered by: ELVIE SANCHEZ 15 Aug 2022 1141 ------- ------- ------- ------- -- STAT Oncolog y Referra l Request /Janelle / POC Farideh HU LÓPEZ 08/15 Other Not Elsewhere Classified [address] [place] [address])(S cott Interna l Medicin e Tm) [address] [place] [address])([facility] Internal Medicine ) TELE CONSULT [id number] Notes Entered by: ELVIE SANCHEZ 26 Aug 2022 1014 ------- ------- ------- ------- -- Surgica l Oncolog ist Referra l Request / Janelle / NATALIA NARAYAN 08/26 Other Not Elsewhere Classified [address] [place] [address] Group [facility])(S cott Interna l Medicin e Tm) [address] [place] [address])([facility] tt Disease Managemen t) TELE CONSULT [id number] Notes Entered by: GIANNI WILKINSON 22 Oct 2022 1310 ------- ------- ------- ------- -- Due for annual visit and labs/ Janelle/ [phone] ADINA MONTALVO 10/22 Referred for Appointment [address] [place] [address])(S cott Disease Managem ent) [address] [place] [address])([facility] tt Internal Medicine Tm) TELE CONSULT [id number] 5 Notes Entered by: SANJUANITA CHI 06 Nov 2022 0820 ------- ------- ------- ------- -- Network results Surgery 022 LAKESHIA HILLMAN 11/[address] [place] [address])(S cott Interna l Medicin e Tm) [address] [place] [address])([facility] Internal Medicine ) OUTPATIENT [id number] annual exam with labs LAURA LUIS 12/06 Released w/o Limitations [address] [place] [address])(S cott Interna l Medicin e Tm) [address] [place] [address])([facility] Internal Medicine Tm) TELE CONSULT [id number] Notes Entered by: Ammy LANDEROS 11 Dec 2022 1044 ------- ------- ------- ------- -- Network result SURGERY /post op 023 LAKESHIA FROST 12/[address] [place] [address])(S cott Interna l Medicin e Tm) [address] [place] [address])([facility] tt Internal Medicine Tm) TELE CONSULT [id number] 6 Notes Entered by: IFEOMA PHELPS 23 Jan 2023 0851 ------- ------- ------- ------- -- Network results Surgery 08/21/20 22 SHERIF LAURA LUIS Jasmeet 01/23 [employer] [facility]S kandice Interna l Medicin e Tm) 0055C[facility] Between Visit [id number] 06/29 Discharge Disposition: Home or Self Care 0055C-[facility] [employer] Visit [id number] 07/14 Discharge Disposition: Home or Self Care 0055C-[facility] [id number] Unspeci fied osteoar thritis , unspeci fied site,Gibson dy mass index (BMI) 30.0-30 .9, adult RAMU MADRID DBRUBAKER 09/20 Discharge Disposition: Home or Self Care 0055C-[facility] 00[facility] Between Visit [id number] 10/06 Discharge Disposition: Home or Self Care 0055C-[address] [facility] [place] 0055C-375 [address] [facility] [place] [facility] Visit [id number] 10/07 Discharge Disposition: Home or Self Care 0055C-3 [facility] [place] Procedures Combined list of: 1) Procedures from Department of Veterans Affairs facilities going back up to thelast 18 months, not all VA non-surgical procedures are included; 2) All procedures from the Department of Defense facilities. Procedure Procedure Type Code Date Perfomer Comments Sour e TELE ASSESS & MGT SRV PROV QUAL NONPHYS HLTH CARE PRO TO EST PAT,PARENT,GUARD NOT ORIG REL ASSESS & MGT SRV PROV W/IN PREV 7 DAYS NOR LEAD ASSESS & MGT SRV/PX W/IN NXT 24 HR/SOON APT;5-10 MIN MED DIS 022 DoD TELE ASSESS & MGT SRV PROV QUAL NONPHYS HLTH CARE PRO TO EST PAT,PARENT,GUARD NOT ORIG REL ASSESS & MGT SRV PROV W/IN PREV 7 DAYS NOR LEAD ASSESS & MGT SRV/PX W/IN NXT 24 HR/SOON APT;5-10 MIN MED DIS DoD TELE ASSESS & MGT SRV PROV QUAL NONPHYS HLTH CARE PRO TO EST PAT,PARENT,GUARD NOT ORIG REL ASSESS & MGT SRV PROV W/IN PREV 7 DAYS NOR LEAD ASSESS & MGT SRV/PX W/IN NXT 24 HR/SOON APT;5-10 MIN MED DIS DoD TELE ASSESS & MGT SRV PROV QUAL NONPHYS HLTH CARE PRO TO EST PAT,PARENT,GUARD NOT ORIG REL ASSESS & MGT SRV PROV W/IN PREV 7 DAYS NOR LEAD ASSESS & MGT SRV/PX W/IN NXT 24 HR/SOON APT;5-10 MIN MED DIS DoD TELE ASSESS & MGT SRV PROV QUAL NONPHYS HLTH CARE PRO TO EST PAT,PARENT,GUARD NOT ORIG REL ASSESS & MGT SRV PROV W/IN PREV 7 DAYS NOR LEAD ASSESS & MGT SRV/PX W/IN NXT 24 HR/SOON APT;5-10 MIN MED DIS DoD TELE ASSESS & MGT SRV PROV QUAL NONPHYS HLTH CARE PRO TO EST PAT,PARENT,GUARD NOT ORIG REL ASSESS & MGT SRV PROV W/IN PREV 7 DAYS NOR LEAD ASSESS & MGT SRV/PX W/IN NXT 24 HR/SOON APT;5-10 MIN MED DIS DoD TELE ASSESS & MGT SRV PROV QUAL NONPHYS HLTH CARE PRO TO EST PAT,PARENT,GUARD NOT ORIG REL ASSESS & MGT SRV PROV W/IN PREV 7 DAYS NOR LEAD ASSESS & MGT SRV/PX W/IN NXT 24 HR/SOON APT;5-10 MIN MED DIS DoD CASE MANAGEMENT, EACH 15 MINUTES DoD TELE ASSESS & MGT SRV PROV QUAL NONPHYS HLTH CARE PRO TO EST PAT,PARENT,GUARD NOT ORIG REL ASSESS & MGT SRV PROV W/IN PREV 7 DAYS NOR LEAD ASSESS & MGT SRV/PX W/IN NXT 24 HR/SOON APT;5-10 MIN MED DIS DoD CASE MANAGEMENT, EACH 15 MINUTES DoD CASE MANAGEMENT, EACH 15 MINUTES [facility] COORDINATED CARE FEE, MAINTENANCE RATE DoD CASE MANAGEMENT, EACH 15 MINUTES DoD CASE MANAGEMENT, EACH 15 MINUTES DoD CASE MANAGEMENT, EACH 15 MINUTES DoD CASE MANAGEMENT, EACH 15 MINUTES DoD CASE MANAGEMENT, EACH 15 MINUTES DoD CASE MANAGEMENT, EACH 15 MINUTES DoD CASE MANAGEMENT, EACH 15 MINUTES DoD CASE MANAGEMENT, EACH 15 MINUTES DoD CASE MANAGEMENT, EACH 15 MINUTES DoD WAIVER SERVICES; NOT OTHERWISE SPECIFIED (NOS) DoD CASE MANAGEMENT, EACH 15 MINUTES DoD CASE MANAGEMENT, EACH 15 MINUTES DoD CASE MANAGEMENT, EACH 15 MINUTES DoD CASE MANAGEMENT, EACH 15 MINUTES DoD CASE MANAGEMENT, EACH 15 MINUTES DoD CASE MANAGEMENT, EACH 15 MINUTES DoD CASE MANAGEMENT, EACH 15 MINUTES DoD CASE MANAGEMENT, EACH 15 MINUTES DoD CASE MANAGEMENT, EACH 15 MINUTES DoD CASE MANAGEMENT, EACH 15 MINUTES DoD CASE MANAGEMENT, EACH 15 MINUTES DoD WAIVER SERVICES; NOT OTHERWISE SPECIFIED (NOS) DoD CASE MANAGEMENT, EACH 15 MINUTES [facility] TELE ASSESS & MGT SRV PROV QUAL NONPHYS HLTH CARE PRO TO EST PAT,PARENT,GUARD NOT ORIG REL ASSESS & MGT SRV PROV W/IN PREV 7 DAYS NOR LEAD ASSESS & MGT SRV/PX W/IN NXT 24 HR/SOON APT;5-10 MIN MED DIS [facility] ARTHROCENTESIS, ASPIRATION AND/OR INJECTION, INTERMEDIATE JOINT OR BURSA (EG, TEMPOROMANDIBULAR, ACROMIOCLAVICULAR, WRIST, ELBOW OR ANKLE, OLECRANON BURSA); WITHOUT ULTRASOUND GUIDANCE [facility] Non-Physician Phone Call To Patient/Provider Brief (5-10min) Non-Physician Phone Call To Patient/Provider Brief (5-10min) [id number] RON SCHULER [facility] Arthrocentesis Injection Of Ganglion Cyst Of Wrist Arthrocentesis Injection Of Ganglion Cyst Of Wrist 007 LORENA AN [facility] Case Management, each 15 minutes LEI ROWELL [facility] Waiver services; not otherwise specified (NOS) CHRIS LARKIN Dory [facility] Coordinated care fee, risk adjusted maintenance, Level 3 LEI ROWELL [facility] Coordinated care fee, risk adjusted maintenance, Level 4 LEI ROWELL [facility] Coordinated care fee, risk adjusted maintenance, Level 5 LEI ROWELL [facility] Coordinated care fee, maintenance rate LEI ROWELL [facility] Coordinated care fee, risk adjusted maintenance LEI ROWELL [facility] Non-Physician Phone Call To Patient/Provider Brief (5-10min) Non-Physician Phone Call To Patient/Provider Brief (5-10min) [id number] HOMER SANTOYO [facility] No data available for this section Ambulato ry Pharmacy Social History Combined list of available smoking, tobacco, and other social history from Department of Defense and Veterans Affairs facilities. Social History Type Response Date Comment Sourc e Female 01/22/2023 Ambulatory Pha rmacy This section is an empty social history section. [facility] Tobacco Cigarette use: Former-cigarette user. Other Tobacco use: Never-other tobacco user (not cigarettes). Ambulatory Pharma cy Sexual Orientation Ambula tory Pharmacy Gender identity Ambulator y Pharmacy Assessment and Plan Combined list of future care activities from Department of Defense and Veterans Affairs facilities (e.g., assessment and plan notes, appointments, orders, and referrals). Additional future care activities may be listed in the Plan of Care section. Result Assessment and Plan Date Source Assessment and Plan Extracted from:Title : 0055[facility] Clinic - Obesity (virtual) Author: RAMU DAILEY MD Date: 09/20/24 1.?BMI 30+ - obesity BMI 54. Modified Yuliana-en-Y was not successful. She has done 6 months lifestyle changes with a shelver and continues with these changes. No significant weight loss with phentermine. - Start Wegovy 0.25mg SQ weekly for 4 weeks then increase to 0.5mg weekly; prior auth approved - F/u in 4-6 wks - Discussed risks of unknown thyroid cancer in her mother. She understands this risk and would still like to proceed. ? 2.?OA - Osteoarthritis Orders: semaglutide(semaglutide (Wegovy) 0.25 mg/0.5 mL (0.25 mg dose) inj-pen), 0.25 mg, SubCutaneous, every week, for weight management in the abdomen, thigh, or upper arm Start with the 0.25mg dose for 4 weeks then increase to 0.5mg., # 2 mL, 0 total refill(s), Maintenance, pen needles not needed, integrated into device; St... semaglutide(semaglutide (Wegovy) 0.5 mg/0.5 mL (0.5 mg dose) inj-pen), 0.5 mg, SubCutaneous, every week, for weight management in the abdomen, thigh, or upper arm Start with the 0.25mg dose for 4 weeks then increase to 0.5mg., # 2 mL, 0 total refill(s), Maintenance, pen needles not needed, integrated into device; Sta... This appointment was performed virtually (via telephone to telephone). Patient s name and were verified prior to beginning the encounter for security purposes.? ? ? Patient encouraged to return to clinic, present to [facility] or ER for persistent worsening or development of other concerning symptoms. Patient cites understanding and agrees with plan of care. ? A total of 30 minutes was spent on this visit reviewing previous notes, counseling the patient on the listed diagnoses, reviewing/ordering tests, adjusting medications, and documenting the findings in this note. ? ? ? Ramu Dailey MD Capt, [address] [facility], [facility] Internal Medicine Staff Physician ? Extracted from:Title: 0055C Clinic - Obesity/bony growth Author: RAMU DAILEY MD Date: 05/28/24 1.?BMI 30+ - obesity BMI 54. Modified Yuliana-en-Y was not successful. She has done 6 months lifestyle changes with a shelver and continues with these changes. She would like to start medical management. - Counseled on the different treatment options - PA placed for phentermine - F/u 12 wks - She will determine what type of thyroid cancer her mom had ? Ordered: phentermine(phentermine 37.5 mg oral tablet), 1 tab(s), Oral, Daily, # 90 tab(s), 0 total refill(s), Maintenance, 1 tab(s) Oral Daily, Pharmacy: [facility] [External Rx] Referral Request 2.0 - DoD ? 2.?Osteophyte of right foot Bony growth on right 4th toe. Likely osteophyte. - XR to confirm - Refer to podiatry for consideration of removal ? ? ? Ordered: phentermine(phentermine 37.5 mg oral tablet), 1 tab(s), Oral, Daily, # 90 tab(s), 0 total refill(s), Maintenance, 1 tab(s) Oral Daily, Pharmacy: [facility] [External Rx] Referral Request 2.0 - DoD ? Patient encouraged to return to clinic, present to [facility] or ER for persistent worsening or development of other concerning symptoms. Patient cites understanding and agrees with plan of care. ? A total of?25 minutes was spent on this visit reviewing previous notes, counseling the patient on the listed diagnoses, reviewing/ordering tests, adjusting medications, and documenting the findings in this note. ? ? ? Ramu Dailey MD [facility], [address] [place] [address] Internal Medicine Staff Physician ? Extracted from:Title: 0055 [facility] Lab discussion Author: LAURA LUIS DO Date: 01/15/24 Iron deficiency Patient with history of iron deficiency, now presenting with elevated ferritin, normal CBC. Discussed with patient and would recommend d/c'ing Iron supplementation. Overall Patient asymptomatic and exam unremarkable. Plan to follow up with repeat labs in next 6-12 months. Patient encouraged to return to clinic, present to [facility] or ER for persistent worsening or development of other concerning symptoms. Patient cites understanding and agrees with plan of care. ? A total of 40 minutes was spent on this visit reviewing previous notes, counseling the patient on the listed diagnoses, reviewing/ordering tests, adjusting medications, and documenting the findings in this note. ? B. Deric Luis DO, [facility] , [facility] Internal Medicine, [place] ? Extracted from:Title: 0055 [facility] Annual Author: LAURA LUIS DO Date: 01/04/24 1.?Encounter for general adult medical examination with abnormal findings Patient is a?58 Years Female?with history of?OA and Depression?presenting today for annual exam. Discussed most recent labwork, medications and prev med as documented. Patient currently feels well, denies any acute complaints. Does note?longstanding improved bilateral knee pain?(Discussed below). Otherwise, ROS unremarkable. Physical exam is unremarkable. ? ? Patient is due for the following Preventative Medicine services, for which, patient has been ordered or referred as noted: - Immunizations (COVID and Flu) - Cervical Cancer Screening - Breast Cancer Screening ? Otherwise, patient's screenings and vaccinations are UTD as documented.? Patient may follow up in 6-12 months for continued PCM care. ? A total of 40 minutes was spent on this visit reviewing previous notes, counseling the patient on the listed diagnoses, reviewing/ordering tests, adjusting medications, and documenting the findings in this note. ? ? 2.?Morbid obesity Discussed diet and exercise to benefit wt and general health. Specifically recommended Mediterranean, low carb, and whole food plant based diet. Discussed ACC/AHA recommendations for exercise (150 min/wk). Patient cites understanding and agrees. 3.?BMI 30+ - obesity 4.?OA - Osteoarthritis History of bilateral OA of knees, no complaints today. Feels well on duloxetine. Exam unremarkable. CCM. 5.?Pulmonary embolism History of PE, on eliquis. No currently complaints. CCM. B. Deric Luis DO, [place] [facility], , [facility] Internal Medicine, [place] ? Future Scheduled TestsLaboratoryHepatic Function Panel 05/28/24Thyroid Stimulating Hormone 05/28/24 11/11/2024 Ambulatory Pharmacy Functional Status Combined list of recent functional and cognitive assessments recorded at [facility] of Defense and [facility] ([facility]).VA Functional Holliday Measurement (FIM) Scale: 1 = Total Assistance (Subject = 0% +), 2 = Maximal Assistance (Subject = 25% +), 3 = Moderate Assistance (Subject = 50% +), 4 = Minimal Assistance (Subject = 75% +), 5 = Supervision, 6 = Modified Holliday (Device), 7 = Complete Holliday (Timely, Safely). Assessment Date/Time Source Assessment Type Assessment Skill Assessment Score Assessment Details No data available for this section
[2024-11-11 14:01] LABS: Basophils Percent Auto 0.5 % (0.2-1.2); Eosinophils Absolute Auto 0.1 K/mm3 (0-0.3); Eosinophils Percent Auto 1.3 % (0-4.4); Hematocrit 45.1 % (37.0-47.0); Immature Granulocyte Absolute 0.01 K/mm3 (0.00-0.031); Immature Granulocyte Percent A 0.1 % (0-0.5); Lymphocytes Absolute Auto 1.79 K/mm3 (0.9-3.2); Lymphocytes Percent Auto 21.9 % (18.3-44.2); Mean Corpuscular HGB Conc 33.3 g/dl (32-36); Mean Corpuscular Hemoglobin 30.2 pg (26-34); Mean Corpuscular Volume 90.7 fl (80-100); Mean Platelet Volume 8.8 fl (7.4-10.4); Monocytes Absolute Auto 0.5 K/mm3 (0.1-0.6); Monocytes Percent Auto 5.8 % (2.6-8.5); Neutrophils Absolute Auto 5.8 K/mm3 (1.3-6.7); Neutrophils Percent Auto 70.4 % (45.5-73.1); Platelet Count Result 261 k/mm3 (150-375); Red Blood Count 4.97 M/mm3 (4.2-5.4); Red Cell Distribution Width 12.2 % (11.5-14.5); White Blood Count 8.2 K/mm3 (4.5-10.0)
[2024-11-11 16:23] LABS: Iron 89 ug/dL (37-170)
[2024-11-11 16:27] LABS: Anion Gap 3 mmol/L (4-12); Blood Urea Nitrogen 26 mg/dL (7-17); Calcium 9.4 mg/dL (8.4-10.2); Carbon Dioxide 28 mmol/L (22-30); Chloride 106 mmol/L (98-107); Estimated Glomerular Filt Rate > 60; Glucose 97 mg/dL (65-110); Potassium 4.1 mmol/L (3.4-5.0); Sodium 137 mmol/L (137-145)
[2024-11-11 16:32] LABS: Percent Iron Saturation 28 % (20-50)
[2024-11-11 17:46] LABS: Folic Acid > 20.0 ng/mL (2.76->20)
== END 2024-11-11 13:37 | disposition home or self-care (01) ==
LOC: ANHLAB 13:37
PROVIDERS: Visit Provider Internal Medicine Hematology & Oncology
DX: D64.9 Anemia, unspecified (principal)
CPT/HCPCS: 36415; 80048; 82607; 82728; 82746; 83540; 83550; 85025

== ENCOUNTER 2025-05-11 14:15 | Outpatient (CLI) | payer OTHER, SELFPAY ==
[2025-05-11 14:37] LABS: Hematocrit 46.3 % (37.0-47.0); Hemoglobin 15.3 g/dL (12.0-15.0); Mean Corpuscular Hemoglobin 30.2 pg (26-34); Mean Corpuscular Volume 91.3 fl (80-100); Mean Platelet Volume 8.7 fl (7.4-10.4); Platelet Count Result 260 k/mm3 (150-375); Red Blood Count 5.07 M/mm3 (4.2-5.4); White Blood Count 6.6 K/mm3 (4.5-10.0)
[2025-05-11 20:57] LABS: Iron 94 ug/dL (37-170)
[2025-05-11 21:10] LABS: Percent Iron Saturation 32 % (20-50)
[2025-05-11 21:22] LABS: Anion Gap 8 mmol/L (4-12); Blood Urea Nitrogen 24 mg/dL (7-17); Calcium 9.4 mg/dL (8.4-10.2); Carbon Dioxide 27 mmol/L (22-30); Chloride 103 mmol/L (98-107); Estimated Glomerular Filt Rate > 60; Glucose 88 mg/dL (65-110); Potassium 4.1 mmol/L (3.4-5.0); Sodium 138 mmol/L (137-145)
[2025-05-11 22:24] LABS: Folic Acid 19.2 ng/mL (2.76->20)
== END 2025-05-11 14:16 | disposition home or self-care (01) ==
PROVIDERS: Visit Provider Internal Medicine Hematology & Oncology
DX: D64.9 Anemia, unspecified (principal)
CPT/HCPCS: 36415; 80048; 82607; 82728; 82746; 83540; 83550; 85027